=== PATIENT | male | born 1945 | race Caucasian/White ===

== ENCOUNTER → 2017-02-06 | Outpatient (CLI) | payer MEDICARE, BC ==
[2017-02-06 14:43] LABS: HIV 1/2 Antibodies Non-Reactive; HIV-1p24 Antigen Non-Reactive
== END ==
LOC: COL.LAB 09:36
PROVIDERS: Orthopaedic Surgery
DX: Z01.812 Encounter for preprocedural laboratory examination (principal); M17.12 Unilateral primary osteoarthritis, left knee

== ENCOUNTER → 2019-07-12 | Outpatient (CLI) | payer MEDICARE, BC | LOC: COL.VAS 10:20 | DX: I51.7 Cardiomegaly (principal) ==

== ENCOUNTER 2021-01-15 06:52 | Outpatient (CLI) | payer MEDICARE, BC ==
[2021-01-15] VITALS (17 sets, daily range): BP systolic 107–140; BP diastolic 56–97; PULSE 54–75; TEMP 97.3–98.7
[~2021-01-15] VITALS: Ht 177.8 cm; Wt 98.1 kg
[2021-01-15] MEDS ORDERED: CENTRUM1 TA1 PO (08:09)
[2021-01-15] MEDS ORDERED: HCTZ 25MG TAB25 MG PO (08:10)
[2021-01-15] MEDS ORDERED: DIOVAN 160MG160 MG PO (08:10)
[2021-01-15] MEDS ORDERED: NORVASC 5MG5 MG/TAB PO (08:11)
[2021-01-15] MEDS ORDERED: ASPIRIN E.C. 8181 MG PO (08:11)
[2021-01-15] MEDS ORDERED: VITAMINC500CH PO (08:11)
[2021-01-15] MEDS ORDERED: FOLIC ACID0.4 MG PO (08:11)
[2021-01-15] MEDS ORDERED: CRESTOR 10MG10 MG PO (08:12)
[2021-01-15] MEDS ORDERED: TOPROL XL100 MG PO (08:12)
--- NOTE | 2021-01-15 09:10 | NUR ---
Demario OR natanael who came to supervisor ovens pt for procedure was notified that pt had not been covid tested prior to bone marrow bx. He alerted Ibis RN. After discussion with NOLAN Baumann, and then NOLAN Jim with this nurse, it was decided that pt did not need to be have rapid swab completed prior to bone marrow bx per Hernán. Pt was taken to ambulatory dept by ivelisse.
[2021-01-15 10:10] LABS: MEAN CELL VOLUME 115 fl (80.0-100.0); MEAN CORPUSCULAR HGB CONC 32 g/dl (33.0-37.0); MEAN PLATELET VOLUME 12.7 fl (7.4-10.4); PLATELET COUNT 101 K/mm3 (130-400); RED BLOOD COUNT 1.83 M/mm3 (4.20-5.60); REDCELL DISTRIBUTION WIDTH-CV 18.7 % (11.5-14.5)
[2021-01-15 10:22] LABS: HEMOGLOBIN 6.8 g/dl (13.5-18.0); MEAN CORPUSCULAR HEMOGLOBIN 37 pg (27.0-31.0)
[2021-01-15 10:30] LABS: BAND 9 % (0-10); EOSINOPHIL 2 % (0-4); LYMPHOCYTE 29 % (20.0-51.0); NEUTROPHILS 57 % (42.0-75.2); NUCLEATED RED BLOOD CELL 1 (0-6); OVALOCYTES 2+; PLATELET ESTIMATE DECREASED (NORMAL); SCHISTOCYTES 1+; TEAR DROP CELLS 1+
--- NOTE | 2021-01-15 10:55 | NUR ---
Pt's Marcia contacted and updated about plan for pt to stay in [facility] for ordered blood transfusion. She expresses understanding. This nurse's phone number provided so she can call for updates. Pt continues to rest comfortably, call light in reach.
--- NOTE | 2021-01-15 18:38 | NUR ---
pt escorted to exit where picked him up. Pt tolerated blood transfusions well, he did not have any adverse reactions. Dressing to biopsy site remains clean dry and intact. Pt is ambulatory at time of departure, gait is steady. IV dc'd with cath intact, dressing applied.
[2021-08-23] MEDS ORDERED: FLOXIN OTIC DROP5 ML OS (09:40)
[2021-08-23] MEDS ORDERED: RESTORIL 1515 MG/CAP PO (09:41)
[2021-09-10] MEDS ORDERED: PREDNISONE1 MG PO (13:41)
== END 2021-01-15 18:40 | disposition home or self-care (01) ==
LOC: COL.RAD 06:52
PROVIDERS: Pathology Anatomic Pathology & Clinical Pathology
DX: D46.Z Other myelodysplastic syndromes (principal); D53.9 Nutritional anemia, unspecified
CPT/HCPCS: J2704; J7050; J7120; P9016

== ENCOUNTER 2021-03-02 12:49 | Outpatient (RCR) | payer MEDICARE, BC ==
[2021-03-02] VITALS (9 sets, daily range): BP systolic 103–133; BP diastolic 53–66; PULSE 57–66; TEMP 97–98.8
[~2021-03-02 12:49] MED LIST: ASPIRIN E.C. 8181 MG PO; CENTRUM1 TA1 PO; CRESTOR 10MG10 MG PO; DIOVAN 160MG160 MG PO; FOLIC ACID0.4 MG PO; HCTZ 25MG TAB25 MG PO; NORVASC 5MG5 MG/TAB PO; TOPROL XL100 MG PO; VITAMINC500CH PO
[2021-08-23] MEDS ORDERED: FLOXIN OTIC DROP5 ML OS (09:40)
[2021-08-23] MEDS ORDERED: RESTORIL 1515 MG/CAP PO (09:41)
[2021-09-10] MEDS ORDERED: PREDNISONE1 MG PO (13:41)
== END 2021-03-02 18:45 ==
LOC: EUO 12:49 → MEDICAL 12:52 → EUO 18:45
DX: D46.22 Refractory anemia with excess of blasts 2 (principal); D46.Z Other myelodysplastic syndromes; D53.9 Nutritional anemia, unspecified
CPT/HCPCS: OP; J7050; P9040

== ENCOUNTER 2021-03-15 13:00 | Outpatient (RCR) | payer MEDICARE, BC ==
[2021-03-15] VITALS (9 sets, daily range): BP systolic 100–131; BP diastolic 54–73; PULSE 64–70; TEMP 97.9–98.7
[~2021-03-15] VITALS: Ht 177.8 cm; Wt 90.9 kg
[2021-03-15] MEDS ORDERED: VENCLEXTA100 MG PO (13:42)
[2021-03-15] MEDS ORDERED: ZOVIRAX400 MG PO (13:44)
[2021-03-15] MEDS ORDERED: ZYLOPRIM 300MG300 MG PO (13:45)
[2021-08-23] MEDS ORDERED: FLOXIN OTIC DROP5 ML OS (09:40)
[2021-08-23] MEDS ORDERED: RESTORIL 1515 MG/CAP PO (09:41)
[2021-09-10] MEDS ORDERED: PREDNISONE1 MG PO (13:41)
== END 2021-03-15 19:48 | disposition home or self-care (01) ==
LOC: EUO 13:00
DX: D46.22 Refractory anemia with excess of blasts 2 (principal); D46.Z Other myelodysplastic syndromes; D64.9 Anemia, unspecified; Z95.9 Presence of cardiac and vascular implant and graft, unspecified
CPT/HCPCS: J1644; J7050; P9040

== ENCOUNTER 2021-03-26 13:00 | Outpatient (RCR) | payer MEDICARE, BC ==
[~2021-03-26] VITALS: Ht 177.8 cm; Wt 89.7 kg
[2021-03-26 13:00] VITALS: BP 114/60; PULSE 81; TEMP 100
[~2021-03-26 13:00] MED LIST changes: +VENCLEXTA100 MG PO; +ZOVIRAX400 MG PO; +ZYLOPRIM 300MG300 MG PO
[2021-03-26 14:30] VITALS: BP 106/62; PULSE 75; TEMP 98.9
[2021-03-26 14:45] VITALS: BP 98/61; PULSE 73; TEMP 98.6
[2021-03-26 15:00] VITALS: BP 98/57; PULSE 62; TEMP 98.6
[2021-03-26 15:30] VITALS: BP 95/56; PULSE 70; TEMP 98.6
[2021-03-26 16:25] VITALS: BP 99/55; PULSE 72; TEMP 98.8
[2021-08-23] MEDS ORDERED: FLOXIN OTIC DROP5 ML OS (09:40)
[2021-08-23] MEDS ORDERED: RESTORIL 1515 MG/CAP PO (09:41)
[2021-09-10] MEDS ORDERED: PREDNISONE1 MG PO (13:41)
== END 2021-03-26 16:45 | disposition home or self-care (01) ==
LOC: EUO 13:00
DX: D46.22 Refractory anemia with excess of blasts 2 (principal); D46.Z Other myelodysplastic syndromes
CPT/HCPCS: J7050; P9037

== ENCOUNTER 2021-03-31 09:09 | Outpatient (RCR) | payer MEDICARE, BC ==
[2021-03-31] VITALS (9 sets, daily range): BP systolic 97–130; BP diastolic 54–76; PULSE 73–90; TEMP 98–98.5
[~2021-03-31] VITALS: Ht 177.8 cm; Wt 89.9 kg
--- NOTE | 2021-03-31 09:28 | NUR ---
Pt arrives to medical unit rm 310, sitting up in chair, awake and alert, reports having a port-a-cath which needs accessed with a 0.75 inch needle. Call light and phone given to pt. No further needs reported. Call light in reach.
--- NOTE | 2021-03-31 10:35 | NUR ---
Blood transfusion started, VSS. Port BRIDGET accessed with 3/4 hubner needle, flush with 500 ml heparin with blood return. No complaints at this time. Denies pain and discomfort. No further needs expressed from the patient. Call light within reach
--- NOTE | 2021-03-31 10:35 | NUR ---
Assessment complete. Patient A&Ox4. VSS IV CDI. lungs ctba. HRR. Audible bowel sounds all quadrants. Nurse oriented patient to location, room and bed. No further needs expressed from the patient. Call light within reach
--- NOTE | 2021-03-31 10:50 | NUR ---
Nurse at the bedside for 15 minutes, patient tolerating the blood transfusion. A&Ox4. VSS. IV CDI. No further needs expressed from the patient. Call light withinr reach
--- NOTE | 2021-03-31 12:27 | NUR ---
Transfusion of 1st unit of blood complete. Patient tolerated well. VSS. IV CDI. No further needs expressed from the patient. Call light within reach
--- NOTE | 2021-03-31 13:38 | NUR ---
Second unit blood transfusion started. Patient A&Ox4. VSS. IV CDI. Call light within reach
--- NOTE | 2021-03-31 15:43 | NUR ---
Blood transfusion complete. Patient tolerated well. VSS. IV CDI. Port deaccessed with 500 ml heparin, bandaid applied. No further needs expressed from the patient.
--- NOTE | 2021-03-31 16:01 | NUR ---
Patient taken by wheelchair to ER entrance. No needs expressed from the patient.
[2021-08-23] MEDS ORDERED: FLOXIN OTIC DROP5 ML OS (09:40)
[2021-08-23] MEDS ORDERED: RESTORIL 1515 MG/CAP PO (09:41)
[2021-09-10] MEDS ORDERED: PREDNISONE1 MG PO (13:41)
== END 2021-03-31 16:08 | disposition home or self-care (01) ==
LOC: EUO 09:09 → MEDICAL 09:10 → EUO 10:00
DX: D46.22 Refractory anemia with excess of blasts 2 (principal); D46.Z Other myelodysplastic syndromes; D53.9 Nutritional anemia, unspecified
CPT/HCPCS: OP; J7050; P9040

== ENCOUNTER 2021-03-31 19:08 | Emergency (ER) | payer MEDICARE, BC ==
[~2021-03-31] VITALS: Ht 172.7 cm; Wt 89.1 kg
[2021-03-31 20:18] LABS: MUCOUS Present /lpf; PH 5 (5-8); SQUAMOUS EPITHELIAL None Seen /hpf; URINE APPEARANCE Clear; URINE BACTERIA None Seen /hpf; URINE BILIRUBIN Negative (NEGATIVE); URINE BLOOD Negative (NEGATIVE); URINE COLOR Yellow; URINE GLUCOSE Negative (NEGATIVE); URINE KETONE Negative (NEGATIVE); URINE LEUKOCYTE ESTERASE Negative (NEGATIVE); URINE NITRATE Negative (NEGATIVE); URINE PROTEIN(semi-quant) Negative (NEGATIVE); URINE RBC 0-2 /hpf; URINE WBC 0-2 /hpf
[2021-03-31 20:33] LABS: COLLECTION METHOD CLEAN CATCH
[2021-03-31 20:35] LABS: MEAN CELL VOLUME 90 fl (80.0-100.0); MEAN CORPUSCULAR HGB CONC 36 g/dl (33.0-37.0); RED BLOOD COUNT 2.61 M/mm3 (4.20-5.60); REDCELL DISTRIBUTION WIDTH-CV 17.9 % (11.5-14.5)
[2021-03-31 20:42] LABS: HEMATOCRIT 23.4 % (42.0-52.0); HEMOGLOBIN 8.3 g/dl (13.5-18.0); MEAN CORPUSCULAR HEMOGLOBIN 32 pg (27.0-31.0)
[2021-03-31 20:44] LABS: INR 1.2 (0.8-3.0); PROTHROMBIN TIME 13.7 SECONDS (9.7-12.8)
[2021-03-31 20:45] LABS: PLATELET COUNT 13 K/mm3 (130-400)
[2021-03-31 20:46] LABS: ALANINE AMINOTRANSFERASE 57 U/L (4-49); ALBUMIN 3.6 gm/dL (3.5-5.0); ALKALINE PHOSPHATASE 85 U/L (50-136); ANION GAP 7 mmol/L (7-16); AST,SGOT 34 U/L (15-37); BILIRUBIN,TOTAL 1.5 mg/dL (0.0-1.0); BLOOD UREA NITROGEN 32 mg/dL (9-20); CALCIUM 8.7 mg/dL (8.4-10.2); CARBON DIOXIDE 26 mmol/L (22-30); CHLORIDE 103 mmol/L (98-107); CREATINE KINASE 23 U/L (55-170); CREATININE, serum 1.07 (0.66-1.25); GLUCOSE 104 mg/dL (74-106); PARTIAL THROMBOPLASTIN TIME 29.1 SECONDS (26.0-37.0); POTASSIUM 3.5 mmol/L (3.4-5.0); SODIUM 136 mmol/L (137-145)
[2021-03-31 21:00] LABS: TROPONIN-I < 0.012 ng/mL (0.000-0.035)
[2021-03-31 21:27] LABS: BAND 2 % (0-10); EOSINOPHIL 1 % (0-4); LYMPHOCYTE 21 % (20.0-51.0); METAMYELOCYTE 1 % (0-0); NEUTROPHILS 61 % (42.0-75.2); PLATELET ESTIMATE DECREASED (NORMAL)
[2021-03-31 21:28] LABS: ANISOCYTOSIS 1+; HYPOCHROMIA 1+; OVALOCYTES 1+; POIKILOCYTOSIS 1+
[2021-03-31 22:40] VITALS: BP 138/80; PULSE 100; TEMP 98.7
[2021-08-23] MEDS ORDERED: FLOXIN OTIC DROP5 ML OS (09:40)
[2021-08-23] MEDS ORDERED: RESTORIL 1515 MG/CAP PO (09:41)
[2021-09-10] MEDS ORDERED: PREDNISONE1 MG PO (13:41)
== END 2021-03-31 22:40 | disposition home or self-care (01) ==
LOC: COL.ER 19:08
PROVIDERS: Emergency Medicine
DX: D46.20 Refractory anemia with excess of blasts, unspecified (principal); D69.6 Thrombocytopenia, unspecified; I10 Essential (primary) hypertension; R50.9 Fever, unspecified; Z20.822 Contact with and (suspected) exposure to COVID-19; Z79.899 Other long term (current) drug therapy
CPT/HCPCS: J0692; J7030

== ENCOUNTER 2021-04-02 13:00 | Outpatient (RCR) | payer MEDICARE, BC ==
[2021-04-01 17:52] VITALS: BP 105/57; PULSE 99; TEMP 98.7
[2021-04-01 18:23] VITALS: BP 114/61; PULSE 95; TEMP 99.4
[2021-04-01 18:38] VITALS: BP 109/66; PULSE 95; TEMP 98.6
[2021-04-01 19:30] VITALS: BP 118/64; PULSE 91; TEMP 98.8
--- NOTE | 2021-04-01 19:30 | NUR ---
pt tolerated platelet infusion with no problem. Port was deaccessed after flushing with 3 saline flushes. Per pharmacy, port was not flushed with heparin due to pt's low platelet count. per pharmacy, heparin is not used if platelets are <20. plan for pt to return for second pack of platelets tomorrow if we are able to get them from [facility].
[~2021-04-02] VITALS: Ht 172.7 cm; Wt 87.0 kg
[2021-04-02 14:15] VITALS: BP 116/72; PULSE 90; TEMP 98.7
[2021-04-02] MEDS ORDERED: LEVAQUIN 5500 MG/TA1 PO (14:30)
[2021-04-02 14:35] VITALS: BP 104/63; PULSE 85; TEMP 99.4
[2021-04-02 14:50] VITALS: BP 107/60; PULSE 77; TEMP 99
[2021-04-02 15:20] VITALS: BP 109/61; PULSE 79; TEMP 98.5
[2021-04-02 16:11] VITALS: BP 128/78; PULSE 83; TEMP 98.2
[2021-08-23] MEDS ORDERED: FLOXIN OTIC DROP5 ML OS (09:40)
[2021-08-23] MEDS ORDERED: RESTORIL 1515 MG/CAP PO (09:41)
[2021-09-10] MEDS ORDERED: PREDNISONE1 MG PO (13:41)
== END 2021-04-02 16:27 | disposition home or self-care (01) ==
LOC: EUO 13:00
DX: D46.22 Refractory anemia with excess of blasts 2 (principal); D46.Z Other myelodysplastic syndromes; D53.9 Nutritional anemia, unspecified
CPT/HCPCS: J1644; J7050; P9037

== ENCOUNTER 2021-04-11 14:46 | Outpatient (RCR) | payer MEDICARE, BC ==
[~2021-04-11] VITALS: Ht 172.7 cm; Wt 86.8 kg
[2021-04-11] VITALS (8 sets, daily range): BP systolic 104–130; BP diastolic 65–77; PULSE 72–86; TEMP 97.9–98.2
[~2021-04-11 14:46] MED LIST changes: +LEVAQUIN 5500 MG/TA1 PO
[2021-04-11] MEDS ORDERED: LEVAQUIN 5500 MG/TA1 PO (14:54)
[2021-08-23] MEDS ORDERED: FLOXIN OTIC DROP5 ML OS (09:40)
[2021-08-23] MEDS ORDERED: RESTORIL 1515 MG/CAP PO (09:41)
[2021-09-10] MEDS ORDERED: PREDNISONE1 MG PO (13:41)
== END 2021-04-11 18:27 | disposition home or self-care (01) ==
LOC: EUO 14:46
DX: D46.22 Refractory anemia with excess of blasts 2 (principal); D46.Z Other myelodysplastic syndromes; D53.9 Nutritional anemia, unspecified; D69.6 Thrombocytopenia, unspecified
CPT/HCPCS: J1644; J7050; P9037; P9040

== ENCOUNTER 2021-04-18 15:00 | Outpatient (RCR) | payer MEDICARE, BC ==
[2021-04-15 08:41] LABS: EOS % 0.3 % (0-4.0); GRAN # 4.6 (1.4-6.5); GRAN % 72.3 % (42.2-75.2); LYMPH # 0.8 (1.2-3.4); LYMPH % 12.8 % (20.0-51.0); MEAN CELL VOLUME 92 fl (80.0-100.0); MEAN CORPUSCULAR HGB CONC 33 g/dl (33.0-37.0); MONO # 0.9 (0.1-0.6); MONO % 13.4 % (1.7-9.3); RED BLOOD COUNT 2.34 M/mm3 (4.20-5.60); REDCELL DISTRIBUTION WIDTH-CV 16.7 % (11.5-14.5)
[2021-04-15 08:42] LABS: HEMATOCRIT 21.4 % (42.0-52.0); HEMOGLOBIN 7.1 g/dl (13.5-18.0); MEAN CORPUSCULAR HEMOGLOBIN 30 pg (27.0-31.0)
[2021-04-15 08:43] LABS: PLATELET COUNT 13 K/mm3 (130-400)
[2021-04-16 13:21] VITALS: BP 104/68; PULSE 81; TEMP 98
[2021-04-16 14:08] VITALS: BP 120/69; PULSE 78; TEMP 97.8
[2021-04-16 14:23] VITALS: BP 134/77; PULSE 72; TEMP 98
[2021-04-16 14:53] VITALS: BP 113/68; PULSE 69; TEMP 97.5
[2021-04-16 16:00] VITALS: BP 130/82; PULSE 81; TEMP 98.6
--- NOTE | 2021-04-16 17:00 | NUR ---
Pt tolerated transfusion with no problem. Pt amb to exit with walker. Pt aware that we will be in contact with him tomorrow about the ordered platelets. Pt was given express unit phone number to call with any questions.
[2021-04-16 17:05] LABS: MEAN CELL VOLUME 89 fl (80.0-100.0); MEAN CORPUSCULAR HGB CONC 35 g/dl (33.0-37.0); RED BLOOD COUNT 2.58 M/mm3 (4.20-5.60); REDCELL DISTRIBUTION WIDTH-CV 16.4 % (11.5-14.5)
[2021-04-16 17:09] LABS: ALBUMIN 3.4 gm/dL (3.5-5.0); BILIRUBIN,TOTAL 1.2 mg/dL (0.0-1.0); CALCIUM 8.8 mg/dL (8.4-10.2); CREATININE, serum 1.03 (0.66-1.25); MAGNESIUM 1.8 mg/dL (1.6-2.3); POTASSIUM 3.7 mmol/L (3.4-5.0); TOTAL PROTEIN 7.2 gm/dL (6.4-8.2)
[2021-04-16 17:28] LABS: HEMATOCRIT 22.9 % (42.0-52.0); HEMOGLOBIN 7.9 g/dl (13.5-18.0); MEAN CORPUSCULAR HEMOGLOBIN 31 pg (27.0-31.0)
[2021-04-16 17:31] LABS: MEAN PLATELET VOLUME 9.7 fl (7.4-10.4); PLATELET COUNT 14 K/mm3 (130-400)
[2021-04-16 18:42] LABS: BAND 1 % (0-10); LYMPHOCYTE 16 % (20.0-51.0); NEUTROPHILS 72 % (42.0-75.2)
[2021-04-16 18:43] LABS: BURR CELLS 1+; PLATELET ESTIMATE DECREASED (NORMAL)
[~2021-04-18] VITALS: Ht 172.7 cm; Wt 86.4 kg
[2021-04-18 16:18] VITALS: BP 134/65; PULSE 80; TEMP 97.8
[2021-04-18] MEDS ORDERED: VENCLEXTA100 MG PO (16:38)
[2021-04-18 16:44] VITALS: BP 106/62; PULSE 78; TEMP 98.4
[2021-04-18 16:59] VITALS: BP 121/71; PULSE 74; TEMP 98.7
[2021-04-18 17:30] VITALS: BP 110/71; PULSE 76; TEMP 98.8
--- NOTE | 2021-04-18 18:06 | NUR ---
pt again did well during his platelet transfusion. no signs or sx of transfusion reaction. pt is amb to exit with walker with steady gait. port was deaccessed and flushed with 20 cc saline and 5 ml hep flush per protocol
[2021-08-23] MEDS ORDERED: FLOXIN OTIC DROP5 ML OS (09:40)
[2021-08-23] MEDS ORDERED: RESTORIL 1515 MG/CAP PO (09:41)
[2021-09-10] MEDS ORDERED: PREDNISONE1 MG PO (13:41)
== END 2021-04-18 18:07 | disposition home or self-care (01) ==
LOC: EUO 15:00
PROVIDERS: Internal Medicine; Internal Medicine Medical Oncology
DX: C95.90 Leukemia, unspecified not having achieved remission (principal); D53.9 Nutritional anemia, unspecified; D46.Z Other myelodysplastic syndromes
CPT/HCPCS: J1644; J7050; P9035; P9040

== ENCOUNTER 2021-04-23 13:00 | Outpatient (RCR) | payer MEDICARE, BC ==
[2021-04-23] VITALS (10 sets, daily range): BP systolic 104–1443; BP diastolic 51–78; PULSE 47–70; TEMP 97.4–98
[~2021-04-23] VITALS: Ht 172.7 cm; Wt 89.0 kg
[2021-08-23] MEDS ORDERED: FLOXIN OTIC DROP5 ML OS (09:40)
[2021-08-23] MEDS ORDERED: RESTORIL 1515 MG/CAP PO (09:41)
[2021-09-10] MEDS ORDERED: PREDNISONE1 MG PO (13:41)
== END 2021-04-25 12:46 | disposition home or self-care (01) ==
LOC: EUO 13:00
DX: D64.2 Secondary sideroblastic anemia due to drugs and toxins (principal)
CPT/HCPCS: J1644; J7050; P9040

== ENCOUNTER 2021-04-26 13:00 | Outpatient (RCR) | payer MEDICARE, BC ==
[2021-04-26 13:51] VITALS: BP 100/62; PULSE 73; TEMP 98.8
[2021-04-26 14:11] VITALS: BP 106/66; PULSE 70; TEMP 98.3
[2021-04-26 14:26] VITALS: BP 110/63; PULSE 64; TEMP 98.2
[2021-04-26 14:56] VITALS: BP 103/60; PULSE 63; TEMP 98.4
[2021-04-26 15:29] VITALS: BP 120/69; PULSE 64; TEMP 98.4
[2021-08-23] MEDS ORDERED: FLOXIN OTIC DROP5 ML OS (09:40)
[2021-08-23] MEDS ORDERED: RESTORIL 1515 MG/CAP PO (09:41)
[2021-09-10] MEDS ORDERED: PREDNISONE1 MG PO (13:41)
== END 2021-04-26 16:15 | disposition home or self-care (01) ==
LOC: EUO 13:00
DX: D69.6 Thrombocytopenia, unspecified (principal)
CPT/HCPCS: J1644; J7050; P9035

== ENCOUNTER 2021-04-30 13:30 | Outpatient (RCR) | payer MEDICARE, BC ==
[~2021-04-30] VITALS: Ht 172.7 cm; Wt 80.9 kg
[2021-04-30 13:25] VITALS: BP 101/61; PULSE 67; TEMP 98
[2021-04-30] MEDS ORDERED: MELATONIN5 M1 SL (14:10)
[2021-04-30 14:15] VITALS: BP 107/64; PULSE 72; TEMP 97.8
[2021-04-30 14:30] VITALS: BP 90/60; PULSE 61; TEMP 98.2
[2021-04-30 15:00] VITALS: BP 107/69; PULSE 67; TEMP 98
[2021-04-30 15:50] VITALS: BP 117/70; PULSE 64; TEMP 98.5
--- NOTE | 2021-04-30 16:04 | NUR ---
Port DC'd, bleeding controlled at site. Site dressed with folded 2x2 and tegaderm. Pt ambulates out from dept under own power with wheeled walker, accompanied by .
[2021-08-23] MEDS ORDERED: FLOXIN OTIC DROP5 ML OS (09:40)
[2021-08-23] MEDS ORDERED: RESTORIL 1515 MG/CAP PO (09:41)
[2021-09-10] MEDS ORDERED: PREDNISONE1 MG PO (13:41)
== END 2021-04-30 16:05 | disposition home or self-care (01) ==
LOC: EUO 13:30
DX: D46.22 Refractory anemia with excess of blasts 2 (principal); D46.Z Other myelodysplastic syndromes; D69.6 Thrombocytopenia, unspecified
CPT/HCPCS: J1644; J7050; P9035

== ENCOUNTER 2021-05-03 13:00 | Outpatient (RCR) | payer MEDICARE, BC ==
[~2021-05-03 13:00] MED LIST changes: +MELATONIN5 M1 SL
--- NOTE | 2021-05-03 13:15 | NUR ---
Patient here from platelets/blood tranfusion. Consent signed. Patient anxious about current situation, prefers tranfusion to be in infusion center. Allowed patient to verbalize concerns, became more comfortable with transfusion. Lungs CTA, heart tones strong and even, pulses palpable. Abdomen soft, non tender, non distended. Bowel sounds active x4 quads. No c/o at this time.
[2021-05-03 14:10] VITALS: BP 126/70; PULSE 73; TEMP 98.4
[2021-05-03 15:50] VITALS: BP 128/67; PULSE 66; TEMP 98.7
[2021-05-03 16:31] VITALS: BP 121/62; PULSE 71; TEMP 97.9
[2021-05-03 17:21] VITALS: BP 128/69; PULSE 63; TEMP 98.1
[2021-05-03 17:55] VITALS: BP 134/68; PULSE 70; TEMP 98
[2021-05-03 18:39] VITALS: BP 133/68; PULSE 63; TEMP 98.1
--- NOTE | 2021-05-03 19:30 | NUR ---
Blood transfusion completed, patient adament about discharging. PAC flushed with 5ml Heparin and deaccessed. Ambulated patient to ER entrance at 1930.
[2021-08-23] MEDS ORDERED: FLOXIN OTIC DROP5 ML OS (09:40)
[2021-08-23] MEDS ORDERED: RESTORIL 1515 MG/CAP PO (09:41)
[2021-09-10] MEDS ORDERED: PREDNISONE1 MG PO (13:41)
== END 2021-05-04 09:28 | disposition home or self-care (01) ==
LOC: EUO 13:00 → EDSTATUS 13:00 → EUO 05-04 09:28
DX: D46.22 Refractory anemia with excess of blasts 2 (principal); D46.Z Other myelodysplastic syndromes; D69.6 Thrombocytopenia, unspecified
CPT/HCPCS: J7050; P9035; P9040

== ENCOUNTER 2021-05-08 14:00 | Outpatient (RCR) | payer MEDICARE, BC ==
[2021-05-08 14:20] VITALS: BP 106/64; PULSE 79; TEMP 97.7
[2021-05-08 15:18] VITALS: BP 98/64; PULSE 79; TEMP 97.3
[2021-05-08 15:33] VITALS: BP 106/56; PULSE 78; TEMP 97.8
[2021-05-08 16:03] VITALS: BP 116/57; PULSE 79; TEMP 98.6
[2021-05-08 16:30] VITALS: BP 116/67; PULSE 82; TEMP 98.6
--- NOTE | 2021-05-08 16:45 | NUR ---
Port-a-cath DC'd, site covered with 2x2 gauze and tegaderm. Pt ambulates out with wheeled walker, steady gait.
[2021-08-23] MEDS ORDERED: FLOXIN OTIC DROP5 ML OS (09:40)
[2021-08-23] MEDS ORDERED: RESTORIL 1515 MG/CAP PO (09:41)
[2021-09-10] MEDS ORDERED: PREDNISONE1 MG PO (13:41)
== END 2021-05-08 17:58 | disposition home or self-care (01) ==
LOC: EDSTATUS 14:00 → EUO 14:00
DX: D46.22 Refractory anemia with excess of blasts 2 (principal); D46.Z Other myelodysplastic syndromes; D69.6 Thrombocytopenia, unspecified
CPT/HCPCS: J7050; P9037

== ENCOUNTER 2021-05-11 12:50 | Outpatient (RCR) | payer MEDICARE, BC ==
[~2021-05-11] VITALS: Ht 172.7 cm; Wt 85.0 kg
[2021-05-11 13:50] VITALS: BP 111/57; PULSE 73; TEMP 97.8
[2021-05-11 13:55] VITALS: BP 125/57; PULSE 75; TEMP 97.7
[2021-05-11] MEDS ORDERED: VENCLEXTA100 MG PO (13:59)
--- NOTE | 2021-05-11 14:04 | NUR ---
Pt resting in room at this time, educated on s/sx of a transfusion reaction. Pt denies any problems or symptoms. at bedside, denies needs, call adriana hatfield. 3/4" hernandez needle used to access PAC to R chest, good blood return and flushing well. Will continue to monitor, remained with pt for first 15 minutes.
[2021-05-11 14:05] VITALS: BP 109/59; PULSE 71; TEMP 97.6
[2021-05-11 14:35] VITALS: BP 109/59; PULSE 75; TEMP 97.6
--- NOTE | 2021-05-11 16:05 | NUR ---
Pt received 1 U PRBCs, tolerated well, no s/sx of a transfusion reaction. Pt heparinized and decaccessed, pressure applied and gauze and tape. Pt escorted out with all belongings with daughter, criteria met.
[2021-05-11 16:35] VITALS: BP 106/59; PULSE 71; TEMP 97.6
[2021-08-23] MEDS ORDERED: FLOXIN OTIC DROP5 ML OS (09:40)
[2021-08-23] MEDS ORDERED: RESTORIL 1515 MG/CAP PO (09:41)
[2021-09-10] MEDS ORDERED: PREDNISONE1 MG PO (13:41)
== END 2021-05-11 16:05 | disposition home or self-care (01) ==
LOC: EUO 12:50 → MEDICAL 12:50 → EUO 13:00 → EDSTATUS 13:00 → EUO 16:05
DX: D46.22 Refractory anemia with excess of blasts 2 (principal); D46.Z Other myelodysplastic syndromes
CPT/HCPCS: J7050; P9040

== ENCOUNTER 2021-05-14 14:00 | Outpatient (RCR) | payer MEDICARE, BC ==
[~2021-05-14] VITALS: Ht 172.7 cm; Wt 81.2 kg
[2021-05-14 13:56] VITALS: BP 104/61; PULSE 79; TEMP 97.7
[2021-05-14 14:27] VITALS: BP 104/61; PULSE 80; TEMP 97.8
[2021-05-14 14:54] VITALS: BP 110/65; PULSE 77; TEMP 97.9
[2021-05-14 15:09] VITALS: BP 111/66; PULSE 74; TEMP 98.1
[2021-05-14 15:39] VITALS: BP 114/70; PULSE 71; TEMP 97.7
[2021-05-14 16:30] VITALS: BP 116/75; PULSE 77; TEMP 97.5
[2021-08-23] MEDS ORDERED: FLOXIN OTIC DROP5 ML OS (09:40)
[2021-08-23] MEDS ORDERED: RESTORIL 1515 MG/CAP PO (09:41)
[2021-09-10] MEDS ORDERED: PREDNISONE1 MG PO (13:41)
== END 2021-05-14 16:51 | disposition home or self-care (01) ==
LOC: EUO 14:00
DX: D46.22 Refractory anemia with excess of blasts 2 (principal); D46.Z Other myelodysplastic syndromes; D53.9 Nutritional anemia, unspecified
CPT/HCPCS: J1644; J7050; P9035

== ENCOUNTER 2021-05-17 13:00 | Outpatient (RCR) | payer MEDICARE, BC ==
[2021-05-17] VITALS (13 sets, daily range): BP systolic 112–147; BP diastolic 68–79; PULSE 70–95; TEMP 97.7–98.2
--- NOTE | 2021-05-18 00:59 | NUR ---
TOOK OVER PT CARE 05/17 AT 1999. BEDSIDE REPOT GIVEN. PT HERE FOR BLOOD PRODUCT REPLACEMENTS SECONDARY TO LEUKEMIA. 2 UNITS OF PRBCS WERE TRANSFUSED AND THE LINE FLUSHED WITH NS. PORT A CATH WAS ALSO FLUSHED AND HEPARIN LOCKED AFTER TRANSFUSIONS WERE COMPLETED. PORT SITE REMAINED FREE FROM COMPLICATIONS. PT REPORTED MINIMAL PAIN WHEN PRESSURE HELP TO STOP BLEEDING AFTER DEACCESSING PORT. VITAL SIGNS REMAINED STABLE AND NO SIDE EFFECTS NOTED. PT ALSO EDUCATED ON POSSIBLE TRANFUSION REACTION AND TO CALL 911 AND/OR THE HOSPITAL FOR ANY COMPLICATIONS AFTER LEAVING. WALKED WITH KENZIE TO ED EXIT. PT ALERT AND ORIENTED, PLANNED TO DRIVE HIMSELF HOME. NO CONCERNS REPORTED PRIOR TO DISCHARGE.
[2021-08-23] MEDS ORDERED: FLOXIN OTIC DROP5 ML OS (09:40)
[2021-08-23] MEDS ORDERED: RESTORIL 1515 MG/CAP PO (09:41)
[2021-09-10] MEDS ORDERED: PREDNISONE1 MG PO (13:41)
== END 2021-05-17 23:30 | disposition home or self-care (01) ==
LOC: EDSTATUS 13:00 → EUO 13:00
DX: D46.22 Refractory anemia with excess of blasts 2 (principal); D46.Z Other myelodysplastic syndromes
CPT/HCPCS: J1644; J1940; J7050; P9037; P9040

== ENCOUNTER → 2021-05-18 | Emergency (ER) | payer MEDICARE, BC ==
[~2021-05-18] MED LIST changes: +DIFLUCAN200 MG PO; +FLOXIN OTIC DROP5 ML OS; +LEVAQUIN 750MG750 M1 PO; +MIRALAX PA17 GM/Dose PO; +PREDNISONE1 MG PO; +RESTORIL 1515 MG/CAP PO; +SENEXON-S 50-81 EACH PO; +ZOFRAN ODT8 MG PO
== END ==
LOC: COL.ER 07:24
DX: R69 Illness, unspecified (principal)

== ENCOUNTER 2021-05-22 13:00 | Outpatient (RCR) | payer MEDICARE, BC ==
[~2021-05-22] VITALS: Ht 172.7 cm; Wt 84.6 kg
[2021-05-22] VITALS (8 sets, daily range): BP systolic 91–137; BP diastolic 57–75; PULSE 70–85; TEMP 97.4–97.8
[~2021-05-22 13:00] MED LIST changes: -DIFLUCAN200 MG PO; -FLOXIN OTIC DROP5 ML OS; -LEVAQUIN 750MG750 M1 PO; -MIRALAX PA17 GM/Dose PO; -PREDNISONE1 MG PO; -RESTORIL 1515 MG/CAP PO; -SENEXON-S 50-81 EACH PO; -ZOFRAN ODT8 MG PO
[2021-08-23] MEDS ORDERED: FLOXIN OTIC DROP5 ML OS (09:40)
[2021-08-23] MEDS ORDERED: RESTORIL 1515 MG/CAP PO (09:41)
[2021-09-10] MEDS ORDERED: PREDNISONE1 MG PO (13:41)
== END 2021-05-22 18:05 | disposition home or self-care (01) ==
LOC: EUO 13:00
DX: D46.22 Refractory anemia with excess of blasts 2 (principal); D53.9 Nutritional anemia, unspecified; D69.6 Thrombocytopenia, unspecified; D46.Z Other myelodysplastic syndromes
CPT/HCPCS: J1644; J7050; P9037

== ENCOUNTER 2021-05-31 13:00 | Outpatient (RCR) | payer MEDICARE, BC ==
[2021-05-31] VITALS (13 sets, daily range): BP systolic 106–159; BP diastolic 63–85; PULSE 71–84; TEMP 97.3–98.2
[~2021-05-31] VITALS: Ht 172.7 cm; Wt 86.6 kg
[2021-08-23] MEDS ORDERED: FLOXIN OTIC DROP5 ML OS (09:40)
[2021-08-23] MEDS ORDERED: RESTORIL 1515 MG/CAP PO (09:41)
[2021-09-10] MEDS ORDERED: PREDNISONE1 MG PO (13:41)
== END 2021-05-31 19:00 | disposition home or self-care (01) ==
LOC: EUO 13:00
DX: D46.22 Refractory anemia with excess of blasts 2 (principal)
CPT/HCPCS: J1644; J7050; P9035; P9040

== ENCOUNTER 2021-06-04 13:00 | Outpatient (RCR) | payer MEDICARE, BC ==
[~2021-06-04] VITALS: Ht 172.7 cm; Wt 87.7 kg
[2021-06-04 13:29] VITALS: BP 103/54; PULSE 79; TEMP 97.9
[2021-06-04 13:55] VITALS: BP 98/54; PULSE 77; TEMP 98.4
[2021-06-04 14:10] VITALS: BP 97/53; PULSE 73; TEMP 97.9
[2021-06-04 14:40] VITALS: BP 97/55; PULSE 74; TEMP 97.7
[2021-06-04 15:26] VITALS: BP 131/78; PULSE 82; TEMP 98.1
[2021-08-23] MEDS ORDERED: FLOXIN OTIC DROP5 ML OS (09:40)
[2021-08-23] MEDS ORDERED: RESTORIL 1515 MG/CAP PO (09:41)
[2021-09-10] MEDS ORDERED: PREDNISONE1 MG PO (13:41)
== END 2021-06-04 15:45 | disposition home or self-care (01) ==
LOC: EUO 13:00 → EDSTATUS 13:00 → EUO 15:45
DX: D69.6 Thrombocytopenia, unspecified (principal); D46.22 Refractory anemia with excess of blasts 2
CPT/HCPCS: J1644; J7050; P9035

== ENCOUNTER 2021-06-07 13:30 | Outpatient (RCR) | payer MEDICARE, BC ==
[2021-06-07] VITALS (11 sets, daily range): BP systolic 106–125; BP diastolic 62–72; PULSE 72–86; TEMP 36.9
[~2021-06-07] VITALS: Ht 172.7 cm; Wt 85.9 kg
[2021-08-23] MEDS ORDERED: FLOXIN OTIC DROP5 ML OS (09:40)
[2021-08-23] MEDS ORDERED: RESTORIL 1515 MG/CAP PO (09:41)
[2021-09-10] MEDS ORDERED: PREDNISONE1 MG PO (13:41)
== END 2021-06-07 20:28 | disposition home or self-care (01) ==
LOC: EUO 13:30
DX: D46.22 Refractory anemia with excess of blasts 2 (principal); D69.6 Thrombocytopenia, unspecified; D46.Z Other myelodysplastic syndromes; Z95.9 Presence of cardiac and vascular implant and graft, unspecified
CPT/HCPCS: J1644; J7050; P9035; P9040

== ENCOUNTER 2021-06-12 13:00 | Outpatient (RCR) | payer MEDICARE, BC ==
[2021-06-11] VITALS (13 sets, daily range): BP systolic 100–155; BP diastolic 55–78; PULSE 75–89; TEMP 98.2–98.8
--- NOTE | 2021-06-11 20:09 | NUR ---
PT has tolerated transfusion of prbc and platelets well with no adverse or allergic reactions. Port flushed with 20 cc ns and heparin flush and left in place for platelet transfusion tomorrow. i walked pt to his car, pt is amb with steady gait.
[2021-06-12 13:57] VITALS: BP 121/63; PULSE 82; TEMP 98
[2021-06-12 14:00] VITALS: BP 118/68; PULSE 84; TEMP 97.9
[2021-06-12 14:20] VITALS: BP 115/65; PULSE 78; TEMP 97.7
[2021-06-12 14:32] VITALS: BP 94/70; PULSE 90; TEMP 97.6
[2021-06-12 14:35] VITALS: BP 119/69; PULSE 77; TEMP 98.4
[2021-06-12 15:20] VITALS: BP 117/69; PULSE 79; TEMP 98.4
[2021-08-23] MEDS ORDERED: FLOXIN OTIC DROP5 ML OS (09:40)
[2021-08-23] MEDS ORDERED: RESTORIL 1515 MG/CAP PO (09:41)
[2021-09-10] MEDS ORDERED: PREDNISONE1 MG PO (13:41)
== END 2021-06-12 15:26 | disposition home or self-care (01) ==
LOC: EUO 13:00
DX: D46.22 Refractory anemia with excess of blasts 2 (principal); D69.6 Thrombocytopenia, unspecified; D46.Z Other myelodysplastic syndromes; Z95.9 Presence of cardiac and vascular implant and graft, unspecified
CPT/HCPCS: J1644; J7050; P9035; P9040

== ENCOUNTER 2021-06-14 13:00 | Outpatient (RCR) | payer MEDICARE, BC ==
[2021-06-14] VITALS (8 sets, daily range): BP systolic 114–136; BP diastolic 67–86; PULSE 84–91; TEMP 97.4–98.3
[2021-08-23] MEDS ORDERED: FLOXIN OTIC DROP5 ML OS (09:40)
[2021-08-23] MEDS ORDERED: RESTORIL 1515 MG/CAP PO (09:41)
[2021-09-10] MEDS ORDERED: PREDNISONE1 MG PO (13:41)
== END 2021-06-14 17:54 | disposition home or self-care (01) ==
LOC: EDSTATUS 13:00 → EUO 13:00
DX: D69.6 Thrombocytopenia, unspecified (principal)
CPT/HCPCS: J7050; P9035

== ENCOUNTER 2021-06-14 20:46 | Emergency (ER) | payer MEDICARE, BC ==
[~2021-06-14] VITALS: Ht 177.8 cm; Wt 86.8 kg
[2021-06-14 21:29] VITALS: BP 119/76; PULSE 98; TEMP 97.9
[2021-08-23] MEDS ORDERED: FLOXIN OTIC DROP5 ML OS (09:40)
[2021-08-23] MEDS ORDERED: RESTORIL 1515 MG/CAP PO (09:41)
[2021-09-10] MEDS ORDERED: PREDNISONE1 MG PO (13:41)
== END 2021-06-14 22:58 | disposition home or self-care (01) ==
LOC: COL.ER 20:46
DX: Z48.01 Encounter for change or removal of surgical wound dressing (principal); I10 Essential (primary) hypertension; Z79.899 Other long term (current) drug therapy

== ENCOUNTER 2021-06-17 06:46 | Outpatient (CLI) | payer MEDICARE, BC ==
[~2021-06-17] VITALS: Ht 172.7 cm; Wt 85.7 kg
[2021-06-17 07:20] VITALS: BP 106/62; PULSE 81; TEMP 98
[2021-06-17 07:46] LABS: MEAN CELL VOLUME 85 fl (80.0-100.0); MEAN CORPUSCULAR HGB CONC 33 g/dl (33.0-37.0); MEAN PLATELET VOLUME 9.3 fl (7.4-10.4); RED BLOOD COUNT 2.67 M/mm3 (4.20-5.60); REDCELL DISTRIBUTION WIDTH-CV 13.5 % (11.5-14.5)
[2021-06-17 08:08] LABS: HEMATOCRIT 22.8 % (42.0-52.0); HEMOGLOBIN 7.6 g/dl (13.5-18.0); MEAN CORPUSCULAR HEMOGLOBIN 28 pg (27.0-31.0)
[2021-06-17 08:09] LABS: PLATELET COUNT 6 K/mm3 (130-400)
--- NOTE | 2021-06-17 08:35 | NUR ---
Gail, [employer] HEL[employer] who is assisting with the bone marrow biopsy procedure with Dr. Ricketts will report Plt count to Dr. Ricketts.
[2021-06-17 09:30] VITALS: BP 114/60; PULSE 71; TEMP 97.8
--- NOTE | 2021-06-17 09:30 | NUR ---
Patient arrives to [facility] via cart, accompanied by LABORATORY CHEMIST Gail. Per report, Dr. Ricketts does not have any additional orders from critical lab results. Patient will see Dr. Riggins's office today at scheduled appointment. PIV to TKO. Monitoring is applied - VSS and WNL on room air. Patient is lying flat in the bed, per order for 10 minutes of flat time. He denies pain or nausea. He is alert and oriented. Discharge plan is discussed.
[2021-06-17 09:45] VITALS: BP 114/57; PULSE 76
--- NOTE | 2021-06-17 09:45 | NUR ---
Patient is offered and receives juice and a muffin to eat. VSS on room air. Denies pain, nausea, or other needs. He is able to sit up in bed without complication.
[2021-06-17 10:00] VITALS: BP 110/59; PULSE 71
--- NOTE | 2021-06-17 10:00 | NUR ---
Patient is tolerating PO well. VSS on room air. His operative site is clean/dry, bandaid intact.
[2021-06-17 10:02] LABS: BAND 2 % (0-10); LYMPHOCYTE 28 % (20.0-51.0); METAMYELOCYTE 1 % (0-0); MYELOCYTE 1 % (0-0); NEUTROPHILS 52 % (42.0-75.2); PLATELET ESTIMATE DECREASED (NORMAL)
--- NOTE | 2021-06-17 10:24 | NUR ---
Patient has met discharge criteria. Discharge instructions are discussed. He denies any questions and verbalizes understanding. PIV is removed with catheter intact and hemostasis achieved. He changes to his clothing independently. He is escorted to the exit via wheelchair by staff. He is discharged to home to the care of his and daughter, who drive him home in a private vehicle at 1024.
[2021-08-23] MEDS ORDERED: FLOXIN OTIC DROP5 ML OS (09:40)
[2021-08-23] MEDS ORDERED: RESTORIL 1515 MG/CAP PO (09:41)
[2021-09-10] MEDS ORDERED: PREDNISONE1 MG PO (13:41)
== END 2021-06-17 10:24 | disposition home or self-care (01) ==
LOC: SDCO 06:46
PROVIDERS: Pathology Anatomic Pathology & Clinical Pathology
DX: D64.9 Anemia, unspecified (principal)
CPT/HCPCS: J7120

== ENCOUNTER 2021-06-18 13:00 | Outpatient (RCR) | payer MEDICARE, BC ==
[2021-06-18] VITALS (10 sets, daily range): BP systolic 105–132; BP diastolic 59–91; PULSE 78–86; TEMP 97.9–98.6
[~2021-06-18] VITALS: Ht 172.7 cm; Wt 88.4 kg
--- NOTE | 2021-06-18 18:15 | NUR ---
PLT transfusion completed without complication. PAC DC'd, 2x2 and bandaid applied over site. Pt remains in room for 10 mins to ensure no bleeding at site. He is escorted out to ED exit with steady gait.
[2021-08-23] MEDS ORDERED: FLOXIN OTIC DROP5 ML OS (09:40)
[2021-08-23] MEDS ORDERED: RESTORIL 1515 MG/CAP PO (09:41)
[2021-09-10] MEDS ORDERED: PREDNISONE1 MG PO (13:41)
== END 2021-06-18 18:15 | disposition home or self-care (01) ==
LOC: EUO 13:00
DX: D46.22 Refractory anemia with excess of blasts 2 (principal); D46.Z Other myelodysplastic syndromes; D69.6 Thrombocytopenia, unspecified
CPT/HCPCS: J1644; J7050; P9035

== ENCOUNTER 2021-06-21 14:00 | Outpatient (RCR) | payer MEDICARE, BC ==
[2021-06-21] VITALS (18 sets, daily range): BP systolic 107–153; BP diastolic 56–77; PULSE 73–89; TEMP 97.2–99.2
--- NOTE | 2021-06-21 20:19 | NUR ---
Pt up to b/r x2, gait steady, report to Marcie FRANCISCO
[2021-08-23] MEDS ORDERED: FLOXIN OTIC DROP5 ML OS (09:40)
[2021-08-23] MEDS ORDERED: RESTORIL 1515 MG/CAP PO (09:41)
[2021-09-10] MEDS ORDERED: PREDNISONE1 MG PO (13:41)
== END 2021-06-24 14:37 | disposition home or self-care (01) ==
LOC: EUO 14:00
DX: D46.22 Refractory anemia with excess of blasts 2 (principal); D46.Z Other myelodysplastic syndromes; D69.6 Thrombocytopenia, unspecified
CPT/HCPCS: J1644; J7040; P9035; P9040

== ENCOUNTER 2021-06-25 13:00 | Outpatient (RCR) | payer MEDICARE, BC ==
[2021-06-25] VITALS (9 sets, daily range): BP systolic 115–142; BP diastolic 66–83; PULSE 69–77; TEMP 98.1–98.4
--- NOTE | 2021-06-25 16:30 | NUR ---
transfuion completed, port flushed per protocol, 2x2 and bandaid over site after needle removal, no oozing noted
[2021-08-23] MEDS ORDERED: FLOXIN OTIC DROP5 ML OS (09:40)
[2021-08-23] MEDS ORDERED: RESTORIL 1515 MG/CAP PO (09:41)
[2021-09-10] MEDS ORDERED: PREDNISONE1 MG PO (13:41)
== END 2021-06-28 16:00 | disposition home or self-care (01) ==
LOC: EUO 13:00
DX: D69.6 Thrombocytopenia, unspecified (principal)
CPT/HCPCS: J1644; J7050; P9035

== ENCOUNTER 2021-06-28 13:00 | Outpatient (RCR) | payer MEDICARE, BC ==
[2021-06-28 13:41] VITALS: BP 108/66; PULSE 74; TEMP 97.7
[2021-06-28 14:00] VITALS: BP 104/63; PULSE 87; TEMP 98
[2021-06-28 14:15] VITALS: BP 118/70; PULSE 77; TEMP 97.7
[2021-06-28 14:45] VITALS: BP 118/64; PULSE 76; TEMP 98.2
[2021-08-23] MEDS ORDERED: FLOXIN OTIC DROP5 ML OS (09:40)
[2021-08-23] MEDS ORDERED: RESTORIL 1515 MG/CAP PO (09:41)
[2021-09-10] MEDS ORDERED: PREDNISONE1 MG PO (13:41)
== END 2021-07-03 12:14 | disposition home or self-care (01) ==
LOC: EDSTATUS 13:00 → EUO 13:00
DX: D69.6 Thrombocytopenia, unspecified (principal); D46.22 Refractory anemia with excess of blasts 2; D46.Z Other myelodysplastic syndromes; Z95.9 Presence of cardiac and vascular implant and graft, unspecified
CPT/HCPCS: J1644; J7050; P9035

== ENCOUNTER 2021-07-02 13:00 | Outpatient (RCR) | payer MEDICARE, BC ==
[2021-07-01] VITALS (8 sets, daily range): BP systolic 107–133; BP diastolic 67–78; PULSE 79–84; TEMP 98.1–98.6
[~2021-07-02] VITALS: Ht 172.7 cm; Wt 86.9 kg
[2021-07-02 13:32] VITALS: BP 126/70; PULSE 95; TEMP 98.2
[2021-07-02 13:50] VITALS: BP 128/77; PULSE 88; TEMP 98.3
[2021-07-02 14:05] VITALS: BP 117/70; PULSE 83; TEMP 97.7
[2021-07-02 14:35] VITALS: BP 127/73; PULSE 80; TEMP 98.1
[2021-07-02 15:33] VITALS: BP 138/82; PULSE 76; TEMP 98.2
[2021-07-02 15:55] VITALS: BP 142/81; PULSE 85; TEMP 98
--- NOTE | 2021-07-02 16:10 | NUR ---
infusion completed, port flushed with 20cc with 2x2 and bandaids applied per request. pt discharged amb.
[2021-08-23] MEDS ORDERED: FLOXIN OTIC DROP5 ML OS (09:40)
[2021-08-23] MEDS ORDERED: RESTORIL 1515 MG/CAP PO (09:41)
[2021-09-10] MEDS ORDERED: PREDNISONE1 MG PO (13:41)
== END 2021-07-04 12:30 | disposition home or self-care (01) ==
LOC: EUO 13:00 → EDSTATUS 13:00 → EUO 07-04 12:30
DX: D53.9 Nutritional anemia, unspecified (principal)
CPT/HCPCS: J7050; P9035; P9040

== ENCOUNTER 2021-07-05 13:00 | Outpatient (RCR) | payer MEDICARE, BC ==
[2021-07-05] VITALS (8 sets, daily range): BP systolic 101–133; BP diastolic 65–78; PULSE 72–84; TEMP 97.8–98
[~2021-07-05] VITALS: Ht 172.7 cm; Wt 86.5 kg
--- NOTE | 2021-07-05 16:36 | NUR ---
pt tolerated platelet transfusions with no problem, port flushed with 20cc ns and port deaccessed. pt is amb to exit independently with steady gait.
[2021-08-23] MEDS ORDERED: FLOXIN OTIC DROP5 ML OS (09:40)
[2021-08-23] MEDS ORDERED: RESTORIL 1515 MG/CAP PO (09:41)
[2021-09-10] MEDS ORDERED: PREDNISONE1 MG PO (13:41)
== END 2021-07-05 16:37 | disposition home or self-care (01) ==
LOC: EUO 13:00
DX: D69.6 Thrombocytopenia, unspecified (principal); D46.Z Other myelodysplastic syndromes; D46.22 Refractory anemia with excess of blasts 2
CPT/HCPCS: J7050; P9035

== ENCOUNTER 2021-07-09 13:00 | Outpatient (RCR) | payer MEDICARE, BC ==
[2021-07-08 14:05] VITALS: BP 115/66; PULSE 75; TEMP 97.7
[2021-07-08 14:37] VITALS: BP 124/64; PULSE 71; TEMP 98.1
[2021-07-08 14:52] VITALS: BP 112/69; PULSE 74; TEMP 98
[2021-07-08 15:22] VITALS: BP 121/70; PULSE 79; TEMP 98.1
[2021-07-08 15:48] VITALS: BP 122/75; PULSE 78; TEMP 98.1
--- NOTE | 2021-07-08 15:56 | NUR ---
Pt has tolerated transfusion of 1 pack platelets with no problem. Nobles needle left in place for transfusion of platelets and PRBC tomorrow. port flushed with 20 cc normal saline. Pt is ambulatory to exit.
[2021-07-09] VITALS (17 sets, daily range): BP systolic 110–149; BP diastolic 59–88; PULSE 72–97; TEMP 97.5–98.3
[2021-08-23] MEDS ORDERED: FLOXIN OTIC DROP5 ML OS (09:40)
[2021-08-23] MEDS ORDERED: RESTORIL 1515 MG/CAP PO (09:41)
[2021-09-10] MEDS ORDERED: PREDNISONE1 MG PO (13:41)
== END 2021-07-09 18:44 | disposition home or self-care (01) ==
LOC: EUO 13:00 → EDSTATUS 13:00 → EUO 18:44
DX: D46.22 Refractory anemia with excess of blasts 2 (principal); D69.6 Thrombocytopenia, unspecified
CPT/HCPCS: J7050; P9035; P9040

== ENCOUNTER 2021-07-23 13:00 | Outpatient (RCR) | payer MEDICARE, BC ==
[2021-07-22 09:39] LABS: MEAN CELL VOLUME 90 fl (80.0-100.0); MEAN CORPUSCULAR HGB CONC 33 g/dl (33.0-37.0); MEAN PLATELET VOLUME 10.3 fl (7.4-10.4); RED BLOOD COUNT 2.78 M/mm3 (4.20-5.60); REDCELL DISTRIBUTION WIDTH-CV 14.1 % (11.5-14.5)
[2021-07-22 09:43] LABS: HEMATOCRIT 25.1 % (42.0-52.0); HEMOGLOBIN 8.3 g/dl (13.5-18.0); MEAN CORPUSCULAR HEMOGLOBIN 30 pg (27.0-31.0)
[2021-07-22 09:44] LABS: PLATELET COUNT 4 K/mm3 (130-400)
[2021-07-22 13:00] LABS: EOSINOPHIL 1 % (0-4); LYMPHOCYTE 48 % (20.0-51.0)
[2021-07-22 13:01] LABS: BAND 5 % (0-10); PLATELET ESTIMATE DECREASED (NORMAL)
[2021-07-22 13:02] LABS: NEUTROPHILS 34 % (42.0-75.2)
[2021-07-23 15:35] VITALS: BP 129/77; PULSE 73; TEMP 98.5
[2021-07-23 15:51] VITALS: BP 137/74; PULSE 62; TEMP 98.4
[2021-07-23 16:14] VITALS: BP 137/75; PULSE 68; TEMP 98
[2021-07-23 16:44] VITALS: BP 122/74; PULSE 69; TEMP 97.8
[2021-07-23 17:15] VITALS: BP 119/74; PULSE 87; TEMP 97.8
--- NOTE | 2021-07-23 17:30 | NUR ---
Pt tolerated platelet transfusion with no problem. port flushed with 20 cc normal saline, then was de-accessed prior to pt's departure. I walked with pt to exit, he had steady gait with a walker.
[2021-08-23] MEDS ORDERED: FLOXIN OTIC DROP5 ML OS (09:40)
[2021-08-23] MEDS ORDERED: RESTORIL 1515 MG/CAP PO (09:41)
[2021-09-10] MEDS ORDERED: PREDNISONE1 MG PO (13:41)
== END 2021-07-23 17:35 | disposition home or self-care (01) ==
LOC: EUO 13:00
PROVIDERS: Internal Medicine Medical Oncology
DX: D46.22 Refractory anemia with excess of blasts 2 (principal); D46.Z Other myelodysplastic syndromes; D69.6 Thrombocytopenia, unspecified; D53.9 Nutritional anemia, unspecified
CPT/HCPCS: J7050; P9035

== ENCOUNTER 2021-07-25 13:00 | Outpatient (RCR) | payer MEDICARE, BC ==
[2021-07-24] VITALS (7 sets, daily range): BP systolic 121–143; BP diastolic 64–78; PULSE 70–84; TEMP 98–98.5
--- NOTE | 2021-07-24 17:30 | NUR ---
Pt has tolerated platelet and prbc transfusion with no problem. Port was flushed briskly with 20 cc ns, port access left in place for transfusion tomorrow. I walked with pt to exit, he is ambulatory with steady gait with walker.
[~2021-07-25] VITALS: Ht 172.7 cm; Wt 88.0 kg
[2021-07-25 12:57] VITALS: BP 120/68; PULSE 85; TEMP 97.6
[2021-07-25 13:23] VITALS: BP 120/66; PULSE 85; TEMP 97.6
[2021-07-25] MEDS ORDERED: DIFLUCAN200 MG PO (13:29)
[2021-07-25] MEDS ORDERED: LEVAQUIN 750MG750 M1 PO (13:29)
[2021-07-25] MEDS ORDERED: MIRALAX PA17 GM/Dose PO (13:30)
[2021-07-25] MEDS ORDERED: SENEXON-S 50-81 EACH PO (13:30)
[2021-07-25] MEDS ORDERED: ZOFRAN ODT8 MG PO (13:32)
[2021-07-25 13:38] VITALS: BP 121/65; PULSE 86; TEMP 98.5
[2021-07-25 14:08] VITALS: BP 120/64; PULSE 89; TEMP 98
[2021-07-25 15:08] VITALS: BP 124/73; PULSE 88; TEMP 98.4
--- NOTE | 2021-07-25 15:40 | NUR ---
Pt tolerated platlet tranfusion without issue. Port flushed with 20 ml on NS and deaccessed. Pt site holding pressure over site for 10 mins prior to departing. He exits dept with steady gait using his wheeled walker.
[2021-08-23] MEDS ORDERED: FLOXIN OTIC DROP5 ML OS (09:40)
[2021-08-23] MEDS ORDERED: RESTORIL 1515 MG/CAP PO (09:41)
[2021-09-10] MEDS ORDERED: PREDNISONE1 MG PO (13:41)
== END 2021-07-25 15:51 | disposition home or self-care (01) ==
LOC: EUO 13:00
DX: D46.22 Refractory anemia with excess of blasts 2 (principal); D69.6 Thrombocytopenia, unspecified; D46.Z Other myelodysplastic syndromes
CPT/HCPCS: J7050; P9016; P9035

== ENCOUNTER 2021-07-26 10:03 | Outpatient (RCR) | payer MEDICARE, BC ==
[2021-07-26] VITALS (15 sets, daily range): BP systolic 96–162; BP diastolic 62–83; PULSE 67–106; TEMP 97.4–98.5
[~2021-07-26 10:03] MED LIST changes: +DIFLUCAN200 MG PO; +LEVAQUIN 750MG750 M1 PO; +MIRALAX PA17 GM/Dose PO; +SENEXON-S 50-81 EACH PO; +ZOFRAN ODT8 MG PO
--- NOTE | 2021-07-26 18:01 | NUR ---
Report to Chente Freeman.
[2021-07-27 16:15] VITALS: BP 127/73; PULSE 68; TEMP 98.8
[2021-07-27 16:30] VITALS: BP 127/76; PULSE 71; TEMP 98.6
[2021-07-27 16:45] VITALS: BP 125/75; PULSE 77; TEMP 98.3
[2021-07-27 17:12] VITALS: BP 141/81; PULSE 74; TEMP 98
[2021-07-27 17:58] VITALS: BP 141/94; PULSE 72; TEMP 98.3
--- NOTE | 2021-07-27 18:12 | NUR ---
PATIENT TOLERATED TRANSFUSION WITH NO S/S REACTION. HE REQUESTS TO HAVE HIS PORT DEACCESSED AFTER TRANSFUSION COMPLETED. PORT ACCESS REMOVED WITH NO ISSUE. PATIENT'S DAUGHTER ESCORTS HIM HOME.
[2021-08-23] MEDS ORDERED: FLOXIN OTIC DROP5 ML OS (09:40)
[2021-08-23] MEDS ORDERED: RESTORIL 1515 MG/CAP PO (09:41)
[2021-09-10] MEDS ORDERED: PREDNISONE1 MG PO (13:41)
== END 2021-07-29 07:41 | disposition home or self-care (01) ==
LOC: EUO 10:03
DX: D46.22 Refractory anemia with excess of blasts 2 (principal); D46.Z Other myelodysplastic syndromes; D69.6 Thrombocytopenia, unspecified
CPT/HCPCS: J1940; J7050; P9016; P9035

== ENCOUNTER 2021-07-29 10:56 | Outpatient (RCR) | payer MEDICARE, BC ==
[2021-07-29] VITALS (8 sets, daily range): BP systolic 117–145; BP diastolic 68–82; PULSE 73–83; TEMP 97.8–98.9
[2021-08-23] MEDS ORDERED: FLOXIN OTIC DROP5 ML OS (09:40)
[2021-08-23] MEDS ORDERED: RESTORIL 1515 MG/CAP PO (09:41)
[2021-09-10] MEDS ORDERED: PREDNISONE1 MG PO (13:41)
== END 2021-07-29 15:32 | disposition home or self-care (01) ==
LOC: EUO 10:56
DX: D69.6 Thrombocytopenia, unspecified (principal)
CPT/HCPCS: J1644; J7050; P9035

== ENCOUNTER 2021-08-01 13:00 | Outpatient (RCR) | payer MEDICARE, BC ==
[~2021-08-01] VITALS: Ht 172.7 cm; Wt 84.6 kg
[2021-08-01] VITALS (7 sets, daily range): BP systolic 112–137; BP diastolic 69–76; PULSE 72–78; TEMP 97.8–98.4
--- NOTE | 2021-08-01 16:07 | NUR ---
pt tolerated platelet transfusions with no problems. We left port accessed as pt anticipates possible transfusion tomorrow. Sammy states will have port deaccessed by express RN tomorrow either way. I walked with Sammy to exit. he has steady gait today without any aide.
[2021-08-23] MEDS ORDERED: FLOXIN OTIC DROP5 ML OS (09:40)
[2021-08-23] MEDS ORDERED: RESTORIL 1515 MG/CAP PO (09:41)
[2021-09-10] MEDS ORDERED: PREDNISONE1 MG PO (13:41)
== END 2021-08-01 17:02 | disposition home or self-care (01) ==
LOC: EUO 13:00
DX: D69.6 Thrombocytopenia, unspecified (principal); D53.9 Nutritional anemia, unspecified
CPT/HCPCS: J7050; P9035

== ENCOUNTER 2021-08-02 09:21 | Outpatient (RCR) | payer MEDICARE, BC ==
[~2021-08-02] VITALS: Ht 172.7 cm; Wt 83.5 kg
[2021-08-02] VITALS (8 sets, daily range): BP systolic 105–127; BP diastolic 65–83; PULSE 69–75; TEMP 97.7–98.6
[2021-08-23] MEDS ORDERED: FLOXIN OTIC DROP5 ML OS (09:40)
[2021-08-23] MEDS ORDERED: RESTORIL 1515 MG/CAP PO (09:41)
[2021-09-10] MEDS ORDERED: PREDNISONE1 MG PO (13:41)
== END 2021-08-02 15:00 | disposition home or self-care (01) ==
LOC: EUO 09:21 → EDSTATUS 09:30 → EUO 15:00
DX: D46.22 Refractory anemia with excess of blasts 2 (principal); D46.Z Other myelodysplastic syndromes; D69.6 Thrombocytopenia, unspecified
CPT/HCPCS: J1644; J7050; P9016; P9035

== ENCOUNTER 2021-08-06 13:00 | Outpatient (RCR) | payer MEDICARE, BC ==
[2021-08-05 10:11] VITALS: BP 142/78; PULSE 73; TEMP 97.5
[2021-08-05 11:43] VITALS: BP 124/79; PULSE 78; TEMP 97.6
[2021-08-05 11:58] VITALS: BP 121/70; PULSE 80; TEMP 98.1
[2021-08-05 12:28] VITALS: BP 123/67; PULSE 76; TEMP 98
[2021-08-05 13:28] VITALS: BP 120/69; PULSE 83; TEMP 97.6
[~2021-08-06] VITALS: Ht 172.7 cm; Wt 76.6 kg
[2021-08-06 13:29] VITALS: BP 104/62; PULSE 88; TEMP 98
[2021-08-06 13:52] VITALS: BP 101/60; PULSE 80; TEMP 98.5
[2021-08-06 14:07] VITALS: BP 111/50; PULSE 78; TEMP 98.7
[2021-08-06 14:37] VITALS: BP 112/57; PULSE 76; TEMP 98.5
[2021-08-06 15:20] VITALS: BP 123/58; PULSE 79; TEMP 98.2
[2021-08-23] MEDS ORDERED: FLOXIN OTIC DROP5 ML OS (09:40)
[2021-08-23] MEDS ORDERED: RESTORIL 1515 MG/CAP PO (09:41)
[2021-09-10] MEDS ORDERED: PREDNISONE1 MG PO (13:41)
== END 2021-08-06 16:00 | disposition home or self-care (01) ==
LOC: EUO 13:00
DX: D69.6 Thrombocytopenia, unspecified (principal)
CPT/HCPCS: J1644; J7050; P9035

== ENCOUNTER 2021-08-11 05:45 | Emergency (ER) | payer MEDICARE, BC ==
[2021-08-11] VITALS (11 sets, daily range): BP systolic 116–137; BP diastolic 64–72; PULSE 71–89; TEMP 97.8–99.1
[~2021-08-11] VITALS: Ht 22.9 cm; Wt 85.5 kg
[2021-08-11 07:22] LABS: MEAN CELL VOLUME 86 fl (80.0-100.0); MEAN CORPUSCULAR HGB CONC 35 g/dl (33.0-37.0); MEAN PLATELET VOLUME 9.3 fl (7.4-10.4); RED BLOOD COUNT 2.35 M/mm3 (4.20-5.60); REDCELL DISTRIBUTION WIDTH-CV 13.5 % (11.5-14.5)
[2021-08-11 07:24] LABS: INR 1.3 (0.8-3.0); PROTHROMBIN TIME 14.9 SECONDS (9.7-12.8)
[2021-08-11 07:26] LABS: PARTIAL THROMBOPLASTIN TIME 35.6 SECONDS (26.0-37.0)
[2021-08-11 07:28] LABS: HEMATOCRIT 20.2 % (42.0-52.0); MEAN CORPUSCULAR HEMOGLOBIN 30 pg (27.0-31.0)
[2021-08-11 07:30] LABS: PLATELET COUNT 8 K/mm3 (130-400)
[2021-08-11 08:38] LABS: BAND 1 % (0-10); LYMPHOCYTE 30 % (20.0-51.0); NEUTROPHILS 44 % (42.0-75.2); PLATELET ESTIMATE DECREASED (NORMAL)
[2021-08-23] MEDS ORDERED: FLOXIN OTIC DROP5 ML OS (09:40)
[2021-08-23] MEDS ORDERED: RESTORIL 1515 MG/CAP PO (09:41)
[2021-09-10] MEDS ORDERED: PREDNISONE1 MG PO (13:41)
== END 2021-08-11 12:42 | disposition home or self-care (01) ==
LOC: COL.ER 05:45
PROVIDERS: Emergency Medicine
DX: D69.6 Thrombocytopenia, unspecified (principal); D46.9 Myelodysplastic syndrome, unspecified; Z48.00 Encounter for change or removal of nonsurgical wound dressing; Z79.899 Other long term (current) drug therapy
CPT/HCPCS: P9016; P9035

== ENCOUNTER 2021-08-22 14:39 | Emergency (ER) | payer MEDICARE, BC ==
[~2021-08-22] VITALS: Ht 177.8 cm; Wt 83.6 kg
[2021-08-22 14:49] VITALS: TEMP 97.1
[2021-08-22 16:59] VITALS: BP 133/73; PULSE 70
[2021-08-23] MEDS ORDERED: FLOXIN OTIC DROP5 ML OS (09:40)
[2021-08-23] MEDS ORDERED: RESTORIL 1515 MG/CAP PO (09:41)
[2021-09-10] MEDS ORDERED: PREDNISONE1 MG PO (13:41)
== END 2021-08-22 16:59 | disposition home or self-care (01) ==
LOC: COL.ER 14:39
DX: S05.02XA Injury of conjunctiva and corneal abrasion without foreign body, left eye, initial encounter (principal); Z88.0 Allergy status to penicillin; X58.XXXA Exposure to other specified factors, initial encounter

== ENCOUNTER 2021-09-21 13:00 | Outpatient (RCR) | payer MEDICARE, BC ==
[2021-08-07 12:06] VITALS: BP 129/64; PULSE 85; TEMP 98
[2021-08-07 12:24] VITALS: BP 100/60; PULSE 85; TEMP 98.1
[2021-08-07 12:39] VITALS: BP 115/62; PULSE 80; TEMP 98.1
[2021-08-07 13:09] VITALS: BP 111/57; PULSE 76; TEMP 98.2
[2021-08-07 13:30] VITALS: BP 116/62; PULSE 74; TEMP 98.3
--- NOTE | 2021-08-07 13:30 | NUR ---
Sammy tolerated PRBC infusion today with no problems. Port was flushed with ns 20 cc and heparin flush and was left accessed per orders for transfusion of platelets tomorrow. Pt is amb to exit today with walker with steady gait.
[2021-08-08] VITALS (9 sets, daily range): BP systolic 106–128; BP diastolic 63–71; PULSE 88–97; TEMP 98.1–99.1
[2021-08-09 08:06] LABS: MEAN CELL VOLUME 84 fl (80.0-100.0); MEAN CORPUSCULAR HGB CONC 35 g/dl (33.0-37.0); MEAN PLATELET VOLUME 8.9 fl (7.4-10.4); RED BLOOD COUNT 2.34 M/mm3 (4.20-5.60); REDCELL DISTRIBUTION WIDTH-CV 13.4 % (11.5-14.5)
[2021-08-09 08:11] LABS: HEMATOCRIT 19.7 % (42.0-52.0); HEMOGLOBIN 6.8 g/dl (13.5-18.0); MEAN CORPUSCULAR HEMOGLOBIN 29 pg (27.0-31.0); PLATELET COUNT 21 K/mm3 (130-400)
[2021-08-09 08:33] VITALS: BP 114/66; PULSE 87; TEMP 98.3
[2021-08-09 09:53] LABS: LYMPHOCYTE 67 % (20.0-51.0); NEUTROPHILS 18 % (42.0-75.2)
[2021-08-09 09:54] LABS: PLATELET ESTIMATE DECREASED (NORMAL)
[2021-08-09 12:29] VITALS: BP 114/67; PULSE 87; TEMP 98.6
[2021-08-09 12:51] VITALS: BP 110/66; PULSE 82; TEMP 98.3
[2021-08-09 13:08] VITALS: BP 112/68; PULSE 82; TEMP 98
[2021-08-09 13:40] VITALS: BP 114/67; PULSE 84; TEMP 98
[2021-08-09 14:00] VITALS: BP 109/64; PULSE 83; TEMP 98
--- NOTE | 2021-08-09 14:16 | NUR ---
infusion completed, port flushed per protocol and taken out per pt request.
[2021-08-12 08:26] LABS: MEAN CELL VOLUME 85 fl (80.0-100.0); MEAN CORPUSCULAR HGB CONC 35 g/dl (33.0-37.0); MEAN PLATELET VOLUME 11.2 fl (7.4-10.4); RED BLOOD COUNT 2.52 M/mm3 (4.20-5.60); REDCELL DISTRIBUTION WIDTH-CV 13.4 % (11.5-14.5)
[2021-08-12 08:33] LABS: HEMATOCRIT 21.4 % (42.0-52.0); HEMOGLOBIN 7.5 g/dl (13.5-18.0); MEAN CORPUSCULAR HEMOGLOBIN 30 pg (27.0-31.0)
[2021-08-12 08:35] LABS: PLATELET COUNT 9 K/mm3 (130-400)
[2021-08-12 08:40] LABS: PATHOLOGY DIFF REVIEW OK
[2021-08-12 08:52] VITALS: BP 102/60; PULSE 75; TEMP 98
[2021-08-12 09:23] LABS: BAND 9 % (0-10); LYMPHOCYTE 30 % (20.0-51.0); NEUTROPHILS 43 % (42.0-75.2)
[2021-08-12 09:24] LABS: PLATELET ESTIMATE DECREASED (NORMAL)
[2021-08-13] VITALS (10 sets, daily range): BP systolic 102–110; BP diastolic 57–68; PULSE 62–80; TEMP 98–98.9
--- NOTE | 2021-08-13 15:50 | NUR ---
Transfusion tubing changed prior to starting PRBC infusion.
[2021-08-14 08:31] VITALS: BP 113/68; PULSE 76; TEMP 98.7
[2021-08-14 08:37] LABS: MEAN CELL VOLUME 86 fl (80.0-100.0); MEAN CORPUSCULAR HGB CONC 34 g/dl (33.0-37.0); MEAN PLATELET VOLUME 11.7 fl (7.4-10.4); RED BLOOD COUNT 2.66 M/mm3 (4.20-5.60); REDCELL DISTRIBUTION WIDTH-CV 13.8 % (11.5-14.5)
[2021-08-14 08:43] LABS: HEMATOCRIT 22.9 % (42.0-52.0); HEMOGLOBIN 7.8 g/dl (13.5-18.0); MEAN CORPUSCULAR HEMOGLOBIN 29 pg (27.0-31.0)
[2021-08-14 08:44] LABS: PLATELET COUNT 10 K/mm3 (130-400)
[2021-08-14 09:04] LABS: ALBUMIN 2.8 gm/dL (3.4-4.8); BILIRUBIN,TOTAL 0.7 mg/dL (0.2-1.2); CALCIUM 9.1 mg/dL (8.4-10.2); CREATININE, serum 0.92 mg/dL (0.72-1.25); MAGNESIUM 1.8 mg/dL (1.6-2.6); POTASSIUM 3.7 mmol/L (3.5-4.5)
[2021-08-14 09:14] LABS: BAND 4 % (0-10); LYMPHOCYTE 41 % (20.0-51.0); NEUTROPHILS 42 % (42.0-75.2)
[2021-08-14 09:18] LABS: PLATELET ESTIMATE DECREASED (NORMAL)
[2021-08-15] VITALS (10 sets, daily range): BP systolic 104–130; BP diastolic 58–74; PULSE 67–77; TEMP 97.5–98.8
--- NOTE | 2021-08-15 18:00 | NUR ---
pt tolerated his transfusions again with no problem. I walked with pt to exit, he was steady with his walker. Daughter Ligia came to pick him up. Port was left accessed for blood draw tomorrow.
[2021-08-16 08:42] LABS: MEAN CELL VOLUME 87 fl (80.0-100.0); MEAN CORPUSCULAR HGB CONC 34 g/dl (33.0-37.0); MEAN PLATELET VOLUME 10.1 fl (7.4-10.4); RED BLOOD COUNT 2.97 M/mm3 (4.20-5.60); REDCELL DISTRIBUTION WIDTH-CV 13.4 % (11.5-14.5)
[2021-08-16 08:59] LABS: HEMOGLOBIN 8.9 g/dl (13.5-18.0); MEAN CORPUSCULAR HEMOGLOBIN 30 pg (27.0-31.0)
[2021-08-16 09:00] LABS: HEMATOCRIT 25.9 % (42.0-52.0); PLATELET COUNT 10 K/mm3 (130-400)
[2021-08-16 09:12] VITALS: BP 113/68; PULSE 75; TEMP 99
[2021-08-16 09:53] LABS: BAND 4 % (0-10); LYMPHOCYTE 46 % (20.0-51.0); MYELOCYTE 2 % (0-0); NEUTROPHILS 45 % (42.0-75.2)
[2021-08-16 09:55] LABS: PLATELET ESTIMATE DECREASED (NORMAL)
[2021-08-16 10:40] VITALS: BP 114/62; PULSE 66; TEMP 98.5
[2021-08-16 11:05] VITALS: BP 106/66; PULSE 69; TEMP 98
[2021-08-16 11:20] VITALS: BP 117/68; PULSE 65; TEMP 98.3
[2021-08-16 11:50] VITALS: BP 127/60; PULSE 64; TEMP 97.9
[2021-08-16 12:31] VITALS: BP 126/68; PULSE 72; TEMP 98.4
[2021-08-17 05:47] LABS: PATHOLOGY DIFF REVIEW OK +
[2021-08-19 09:02] LABS: MEAN CELL VOLUME 89 fl (80.0-100.0); MEAN CORPUSCULAR HGB CONC 33 g/dl (33.0-37.0); MEAN PLATELET VOLUME 11.4 fl (7.4-10.4); REDCELL DISTRIBUTION WIDTH-CV 13.3 % (11.5-14.5)
[2021-08-19 09:19] LABS: MEAN CORPUSCULAR HEMOGLOBIN 30 pg (27.0-31.0)
[2021-08-19 09:21] LABS: PLATELET COUNT 7 K/mm3 (130-400)
[2021-08-19 10:22] LABS: BAND 1 % (0-10); LYMPHOCYTE 38 % (20.0-51.0); METAMYELOCYTE 2 % (0-0); NEUTROPHILS 48 % (42.0-75.2)
[2021-08-19 10:26] LABS: PLATELET ESTIMATE DECREASED (NORMAL)
[2021-08-19 11:44] VITALS: BP 112/59; PULSE 63; TEMP 98.3
[2021-08-19 12:01] VITALS: BP 123/59; PULSE 64; TEMP 98.5
[2021-08-19 12:22] VITALS: BP 109/55; PULSE 61; TEMP 98.1
[2021-08-19 12:37] VITALS: BP 109/57; PULSE 61; TEMP 98.2
[2021-08-19 13:07] VITALS: BP 119/60; PULSE 59; TEMP 98.2
[2021-08-19 13:45] VITALS: BP 127/60; PULSE 59; TEMP 98.2
[2021-08-21] VITALS (9 sets, daily range): BP systolic 102–129; BP diastolic 55–68; PULSE 63–78; TEMP 98–98.2
[2021-08-21 08:37] LABS: MEAN CELL VOLUME 88 fl (80.0-100.0); MEAN CORPUSCULAR HGB CONC 34 g/dl (33.0-37.0); MEAN PLATELET VOLUME 8.7 fl (7.4-10.4); RED BLOOD COUNT 2.63 M/mm3 (4.20-5.60); REDCELL DISTRIBUTION WIDTH-CV 13.4 % (11.5-14.5)
[2021-08-21 08:52] LABS: HEMATOCRIT 23.2 % (42.0-52.0); HEMOGLOBIN 7.9 g/dl (13.5-18.0); MEAN CORPUSCULAR HEMOGLOBIN 30 pg (27.0-31.0)
[2021-08-21 08:53] LABS: PLATELET COUNT 7 K/mm3 (130-400)
[2021-08-21 09:04] LABS: ALBUMIN 2.9 gm/dL (3.4-4.8); BILIRUBIN,TOTAL 0.6 mg/dL (0.2-1.2); CALCIUM 9.3 mg/dL (8.4-10.2); CREATININE, serum 0.99 mg/dL (0.72-1.25); MAGNESIUM 1.8 mg/dL (1.6-2.6); POTASSIUM 3.9 mmol/L (3.5-4.5); TOTAL PROTEIN 6.3 gm/dL (6.2-8.1)
[2021-08-21 09:32] LABS: BAND 3 % (0-10); LYMPHOCYTE 17 % (20.0-51.0); METAMYELOCYTE 1 % (0-0); NEUTROPHILS 44 % (42.0-75.2); PLATELET ESTIMATE DECREASED (NORMAL)
[2021-08-23 08:47] LABS: MEAN CELL VOLUME 87 fl (80.0-100.0); MEAN CORPUSCULAR HGB CONC 34 g/dl (33.0-37.0); MEAN PLATELET VOLUME 9.8 fl (7.4-10.4); RED BLOOD COUNT 3.04 M/mm3 (4.20-5.60); REDCELL DISTRIBUTION WIDTH-CV 13.5 % (11.5-14.5)
[2021-08-23 08:49] LABS: HEMATOCRIT 26.4 % (42.0-52.0); MEAN CORPUSCULAR HEMOGLOBIN 30 pg (27.0-31.0)
[2021-08-23 08:54] LABS: PLATELET COUNT 12 K/mm3 (130-400)
[2021-08-23 09:09] VITALS: BP 110/66; PULSE 81; TEMP 98.5
[2021-08-23 09:50] LABS: BAND 3 % (0-10); LYMPHOCYTE 16 % (20.0-51.0)
[2021-08-23 09:51] LABS: PLATELET ESTIMATE DECREASED (NORMAL)
[2021-08-23 09:54] LABS: NEUTROPHILS 63 % (42.0-75.2)
[2021-08-23 13:17] VITALS: BP 117/65; PULSE 70; TEMP 97.8
[2021-08-23 13:45] VITALS: BP 117/65; PULSE 69; TEMP 98.5
[2021-08-23 14:00] VITALS: BP 137/73; PULSE 72; TEMP 98.1
[2021-08-23 14:20] VITALS: BP 129/87; PULSE 67; TEMP 98.1
[2021-08-26 08:55] VITALS: BP 105/67; PULSE 74; TEMP 97.7
[2021-08-26 11:37] LABS: BAND 1 % (0-10); LYMPHOCYTE 41 % (20.0-51.0); NEUTROPHILS 46 % (42.0-75.2)
[2021-08-26 11:38] LABS: PLATELET ESTIMATE DECREASED (NORMAL)
[2021-08-26 11:39] LABS: MEAN CELL VOLUME 87 fl (80.0-100.0); MEAN CORPUSCULAR HGB CONC 34 g/dl (33.0-37.0); MEAN PLATELET VOLUME 10.6 fl (7.4-10.4); RED BLOOD COUNT 2.84 M/mm3 (4.20-5.60); REDCELL DISTRIBUTION WIDTH-CV 13.2 % (11.5-14.5)
[2021-08-26 11:40] LABS: HEMATOCRIT 24.8 % (42.0-52.0); HEMOGLOBIN 8.4 g/dl (13.5-18.0); MEAN CORPUSCULAR HEMOGLOBIN 30 pg (27.0-31.0); PLATELET COUNT 6 K/mm3 (130-400)
--- NOTE | 2021-08-26 12:00 | NUR ---
after lab gotten today, VAP was left in for pt, pt arrived back on unit via walker to check on lab results, pt waited in chair, pt recieved phone call from Dr moreau and he stated that he would recieve his platlets Thu am after being ordered to come in pm. Dr moreau was called and left message to confirm new orders and to fax new ones
[2021-08-27 14:35] VITALS: BP 120/69; PULSE 74; TEMP 98.6
[2021-08-27 15:10] VITALS: BP 127/73; PULSE 67; TEMP 98.9
[2021-08-27 15:25] VITALS: BP 123/66; PULSE 66; TEMP 98.7
[2021-08-27 15:38] LABS: CREATININE, serum 0.85 mg/dL (0.72-1.25)
[2021-08-27 15:55] VITALS: BP 132/70; PULSE 68; TEMP 98.6
[2021-08-28] VITALS (7 sets, daily range): BP systolic 98–126; BP diastolic 58–67; PULSE 71–80; TEMP 98.1–98.8
[2021-08-28 08:47] LABS: MEAN CELL VOLUME 88 fl (80.0-100.0); MEAN CORPUSCULAR HGB CONC 34 g/dl (33.0-37.0); MEAN PLATELET VOLUME 9.2 fl (7.4-10.4); RED BLOOD COUNT 2.57 M/mm3 (4.20-5.60); REDCELL DISTRIBUTION WIDTH-CV 13.2 % (11.5-14.5)
[2021-08-28 08:48] LABS: HEMATOCRIT 22.5 % (42.0-52.0); HEMOGLOBIN 7.6 g/dl (13.5-18.0); MEAN CORPUSCULAR HEMOGLOBIN 30 pg (27.0-31.0)
[2021-08-28 08:49] LABS: PLATELET COUNT 13 K/mm3 (130-400)
[2021-08-28 09:21] LABS: ALBUMIN 2.9 gm/dL (3.4-4.8); BILIRUBIN,TOTAL 0.6 mg/dL (0.2-1.2); CALCIUM 9.5 mg/dL (8.4-10.2); CREATININE, serum 1.01 mg/dL (0.72-1.25); MAGNESIUM 1.8 mg/dL (1.6-2.6); POTASSIUM 3.6 mmol/L (3.5-4.5); TOTAL PROTEIN 6.3 gm/dL (6.2-8.1)
[2021-08-28 09:30] LABS: BAND 2 % (0-10); LYMPHOCYTE 36 % (20.0-51.0); METAMYELOCYTE 1 % (0-0); NEUTROPHILS 52 % (42.0-75.2)
[2021-08-28 09:31] LABS: PLATELET ESTIMATE DECREASED (NORMAL)
[2021-08-30 08:35] LABS: MEAN CELL VOLUME 89 fl (80.0-100.0); MEAN CORPUSCULAR HGB CONC 34 g/dl (33.0-37.0); MEAN PLATELET VOLUME 8.8 fl (7.4-10.4); RED BLOOD COUNT 2.78 M/mm3 (4.20-5.60); REDCELL DISTRIBUTION WIDTH-CV 13.3 % (11.5-14.5)
[2021-08-30 08:36] LABS: HEMATOCRIT 24.7 % (42.0-52.0); HEMOGLOBIN 8.3 g/dl (13.5-18.0); MEAN CORPUSCULAR HEMOGLOBIN 30 pg (27.0-31.0); PLATELET COUNT 6 K/mm3 (130-400)
[2021-08-30 09:07] LABS: BAND 4 % (0-10); LYMPHOCYTE 12 % (20.0-51.0); NEUTROPHILS 36 % (42.0-75.2); PLATELET ESTIMATE DECREASED (NORMAL)
[2021-08-30 09:09] VITALS: BP 105/68; PULSE 96; TEMP 97.8
[2021-08-30 11:12] VITALS: BP 109/72; PULSE 79; TEMP 97.6
[2021-08-30 11:28] VITALS: BP 108/67; PULSE 81; TEMP 97.1
[2021-08-30 11:43] VITALS: BP 107/66; PULSE 78; TEMP 97.8
[2021-08-30 12:13] VITALS: BP 114/66; PULSE 67; TEMP 98.4
[2021-08-30 13:02] VITALS: BP 114/63; PULSE 75; TEMP 97.6
[2021-09-02 08:43] LABS: MEAN CELL VOLUME 87 fl (80.0-100.0); MEAN CORPUSCULAR HGB CONC 34 g/dl (33.0-37.0); MEAN PLATELET VOLUME 10.9 fl (7.4-10.4); REDCELL DISTRIBUTION WIDTH-CV 13.4 % (11.5-14.5)
[2021-09-02 08:48] LABS: HEMATOCRIT 20.9 % (42.0-52.0); HEMOGLOBIN 7.2 g/dl (13.5-18.0); MEAN CORPUSCULAR HEMOGLOBIN 30 pg (27.0-31.0)
[2021-09-02 08:49] LABS: PLATELET COUNT 5 K/mm3 (130-400)
[2021-09-02 08:57] LABS: ALBUMIN 2.8 gm/dL (3.4-4.8); BILIRUBIN,TOTAL 0.7 mg/dL (0.2-1.2); CALCIUM 9.4 mg/dL (8.4-10.2); MAGNESIUM 1.8 mg/dL (1.6-2.6); POTASSIUM 3.9 mmol/L (3.5-4.5); TOTAL PROTEIN 6.3 gm/dL (6.2-8.1)
[2021-09-02 09:08] VITALS: BP 99/65; PULSE 107; TEMP 98.4
[2021-09-02 09:46] LABS: BAND 6 % (0-10); LYMPHOCYTE 32 % (20.0-51.0); NEUTROPHILS 53 % (42.0-75.2)
[2021-09-02 09:48] LABS: PLATELET ESTIMATE DECREASED (NORMAL)
[2021-09-02 10:25] VITALS: BP 111/70; PULSE 103; TEMP 97
[2021-09-02 10:40] VITALS: BP 105/69; PULSE 99; TEMP 97.3
[2021-09-02 11:10] VITALS: BP 93/60; PULSE 90; TEMP 97.2
[2021-09-02 12:10] VITALS: BP 95/62; PULSE 84; TEMP 97
[2021-09-02 12:43] VITALS: BP 116/66; PULSE 82; TEMP 97.5
--- NOTE | 2021-09-02 15:45 | NUR ---
0811 - [facility] with notes stating " We can definitely set up hospice if the patient is ready." Current [facility] staff not aware of a hospice request or conversation. Patient scheduled for transfusion today. 1210 - Contact made with office nurse, Marta, regarding note on fax & plan. Marta states that there was a message left on Thursday regarding patient asking about hospice options; message was from [facility] charge nurse. This author would talk with patient today about his knowledge of situation & follow-up with Marta. 1245 - This author talked with patient for approximately 30 minutes about what communication he had received from his care team, his understanding & his plan. Discussed recent issues with his eye & his MRI that was completed on Thursday (waiting results). Patient stated that he met with his PCP (Dr. Roland) last week & she was needing more information from Oncology. He meets with his Oncologist (Dr. Riggins) this Thursday. Patient stated that he is prepared to hear that he may not be able to get anymore blood products & he acknowledged that other patients may need them worse than him. Patient had many questions about hospice (at home vs. at hospice house). Stated that his family knows the end is near, but he needs to hear from his Oncologist that there is nothing else that can be done. Patient is not ready to give up, but knows he is nearing the end. Advised patient that this author would follow-up with Marta at [facility] about his plans this week. 0461 - Talked with NOLAN Lozano at [facility] about conversation with patient today. Patient was previously scheduled to meet with Dr. Riggins this Thursday & plans to keep appointment to discuss plan of care moving forward.
[2021-09-03 13:24] VITALS: BP 101/67; PULSE 88
[2021-09-03 14:10] VITALS: BP 109/66; PULSE 78; TEMP 97.7
[2021-09-03 14:30] VITALS: BP 115/62; PULSE 75; TEMP 98
[2021-09-03 14:45] VITALS: BP 111/68; PULSE 79; TEMP 98.1
[2021-09-03 15:15] VITALS: BP 114/75; PULSE 79; TEMP 98
[2021-09-03 16:15] VITALS: BP 137/74; PULSE 74; TEMP 97.8
--- NOTE | 2021-09-03 16:35 | NUR ---
Port flushed per orders. Port remains accessed as pt will return tomorrow for blood draw. He tolerated today's infusion without issue. He is escorted out to elevator. Gait is steady with use of wheeled walker.
[2021-09-04] VITALS (10 sets, daily range): BP systolic 104–132; BP diastolic 50–70; PULSE 75–85; TEMP 98.4–98.9
[2021-09-04 08:39] LABS: MEAN CELL VOLUME 86 fl (80.0-100.0); MEAN CORPUSCULAR HGB CONC 34 g/dl (33.0-37.0); MEAN PLATELET VOLUME 9.7 fl (7.4-10.4); RED BLOOD COUNT 2.41 M/mm3 (4.20-5.60); REDCELL DISTRIBUTION WIDTH-CV 13.5 % (11.5-14.5)
[2021-09-04 08:40] LABS: HEMATOCRIT 20.8 % (42.0-52.0); HEMOGLOBIN 7.1 g/dl (13.5-18.0); MEAN CORPUSCULAR HEMOGLOBIN 29 pg (27.0-31.0); PLATELET COUNT 6 K/mm3 (130-400)
[2021-09-04 09:54] LABS: BAND 1 % (0-10); LYMPHOCYTE 62 % (20.0-51.0); NEUTROPHILS 35 % (42.0-75.2); PLATELET ESTIMATE DECREASED (NORMAL)
--- NOTE | 2021-09-04 11:00 | NUR ---
Encoraged pt to let staff assist ambulating to vehicle with wheelchair.Pt refuses but agress to let staff walk beside him.Pt uses front wheeled walker.
[2021-09-06 08:23] LABS: MEAN CELL VOLUME 87 fl (80.0-100.0); MEAN CORPUSCULAR HGB CONC 34 g/dl (33.0-37.0); MEAN PLATELET VOLUME 9.8 fl (7.4-10.4); RED BLOOD COUNT 2.84 M/mm3 (4.20-5.60); REDCELL DISTRIBUTION WIDTH-CV 13.4 % (11.5-14.5)
[2021-09-06 08:37] LABS: HEMATOCRIT 24.7 % (42.0-52.0); HEMOGLOBIN 8.4 g/dl (13.5-18.0); MEAN CORPUSCULAR HEMOGLOBIN 30 pg (27.0-31.0)
[2021-09-06 08:38] LABS: PLATELET COUNT 5 K/mm3 (130-400)
[2021-09-06 08:57] LABS: BAND 4 % (0-10); METAMYELOCYTE 1 % (0-0); NEUTROPHILS 37 % (42.0-75.2); PLATELET ESTIMATE DECREASED (NORMAL)
[2021-09-06 10:42] VITALS: BP 110/63; PULSE 83; TEMP 98.2
[2021-09-06 11:03] VITALS: BP 107/64; PULSE 78; TEMP 98.1
[2021-09-06 11:13] LABS: PATHOLOGY DIFF REVIEW OK +
[2021-09-06 11:20] VITALS: BP 111/64; PULSE 78; TEMP 97.8
[2021-09-06 11:48] VITALS: BP 123/65; PULSE 81; TEMP 97.8
--- NOTE | 2021-09-06 11:50 | NUR ---
infusion completed, port flushed per protocol and vap needle removed with bandaid over site
--- NOTE | 2021-09-06 12:10 | NUR ---
PT TO LOBBY VIA WHEELED WALKER WITH STAFF TO SIT IN CHAIR TO WAIT FOR FAMILY
[2021-09-06 12:23] VITALS: BP 112/70; PULSE 87
[2021-09-06 12:42] LABS: LYMPHOCYTE 27 % (20.0-51.0)
--- NOTE | 2021-09-06 13:31 | NUR ---
PT RESTED IN RECLINER IN EU FOR 1 HOUR, PT CALLED FAMILY TO PICK HIM UP, NO C/O PAIN, PT DOES HAVE OLD PURPLE COLOR BRUISING TO LOW BACK AND TO RIGHT HIP AREA PT STATES FROM FALL AT HOME SEVERAL WEEKS AGO, PT STATES HAVING NO PAIN, STATES WILL GO TO ER IF HAVING ANY PROBLEMS
--- NOTE | 2021-09-06 13:35 | NUR ---
Pt escorted out via wheelchair by this nurse.
[2021-09-09 08:42] VITALS: BP 112/83; PULSE 72; TEMP 97.8
[2021-09-09 08:44] LABS: MEAN CELL VOLUME 89 fl (80.0-100.0); MEAN CORPUSCULAR HGB CONC 34 g/dl (33.0-37.0); MEAN PLATELET VOLUME 10.2 fl (7.4-10.4); RED BLOOD COUNT 2.36 M/mm3 (4.20-5.60); REDCELL DISTRIBUTION WIDTH-CV 13.6 % (11.5-14.5)
[2021-09-09 08:59] LABS: ALBUMIN 2.9 gm/dL (3.4-4.8); CALCIUM 9.9 mg/dL (8.4-10.2); CREATININE, serum 0.85 mg/dL (0.72-1.25); MAGNESIUM 1.8 mg/dL (1.6-2.6); POTASSIUM 3.9 mmol/L (3.5-4.5); TOTAL PROTEIN 6.1 gm/dL (6.2-8.1)
[2021-09-09 09:13] LABS: BAND 3 % (0-10); METAMYELOCYTE 1 % (0-0); NEUTROPHILS 61 % (42.0-75.2); PLATELET ESTIMATE DECREASED (NORMAL)
[2021-09-09 09:16] LABS: HEMATOCRIT 20.9 % (42.0-52.0); HEMOGLOBIN 7.1 g/dl (13.5-18.0); MEAN CORPUSCULAR HEMOGLOBIN 30 pg (27.0-31.0)
[2021-09-09 09:18] LABS: PLATELET COUNT 5 K/mm3 (130-400)
[2021-09-09 09:23] LABS: BILIRUBIN,TOTAL 0.8 mg/dL (0.2-1.2); LYMPHOCYTE 30 % (20.0-51.0)
[2021-09-10] VITALS (9 sets, daily range): BP systolic 115–134; BP diastolic 69–78; PULSE 72–83; TEMP 97.4–98.8
--- NOTE | 2021-09-10 17:59 | NUR ---
Pt tolerated his transfusions again with no problem today. Pt is escorted to exit via wheelchair.
[2021-09-11 08:20] LABS: PATHOLOGY DIFF REVIEW OK
[2021-09-11 08:29] LABS: HEMATOCRIT 25.9 % (42.0-52.0); HEMOGLOBIN 8.6 g/dl (13.5-18.0); MEAN CELL VOLUME 90 fl (80.0-100.0); MEAN CORPUSCULAR HEMOGLOBIN 30 pg (27.0-31.0); MEAN CORPUSCULAR HGB CONC 33 g/dl (33.0-37.0); MEAN PLATELET VOLUME 11.8 fl (7.4-10.4); PLATELET COUNT 9 K/mm3 (130-400); RED BLOOD COUNT 2.89 M/mm3 (4.20-5.60); REDCELL DISTRIBUTION WIDTH-CV 13.5 % (11.5-14.5)
[2021-09-11 08:30] VITALS: BP 121/68; PULSE 72; TEMP 97.9
[2021-09-11 08:42] LABS: ANISOCYTOSIS 1+; BAND 2 % (0-10); LYMPHOCYTE 33 % (20.0-51.0); MYELOCYTE 4 % (0-0); NEUTROPHILS 57 % (42.0-75.2); PLATELET ESTIMATE DECREASED (NORMAL)
[2021-09-11 10:11] VITALS: BP 131/69; PULSE 80; TEMP 98.5
[2021-09-11 10:26] VITALS: BP 128/72; PULSE 77; TEMP 97.8
[2021-09-11 10:56] VITALS: BP 112/66; PULSE 76; TEMP 97.9
[2021-09-11 11:38] VITALS: BP 110/62; PULSE 72; TEMP 98
[2021-09-13 08:10] VITALS: BP 114/70; PULSE 78; TEMP 97.7
[2021-09-13 08:43] LABS: MEAN CELL VOLUME 90 fl (80.0-100.0); MEAN CORPUSCULAR HGB CONC 33 g/dl (33.0-37.0); MEAN PLATELET VOLUME 10.4 fl (7.4-10.4); RED BLOOD COUNT 2.34 M/mm3 (4.20-5.60); REDCELL DISTRIBUTION WIDTH-CV 13.8 % (11.5-14.5)
[2021-09-13 09:04] LABS: HEMATOCRIT 21.1 % (42.0-52.0); MEAN CORPUSCULAR HEMOGLOBIN 30 pg (27.0-31.0)
[2021-09-13 09:05] LABS: PLATELET COUNT 9 K/mm3 (130-400)
[2021-09-13 09:24] LABS: BAND 4 % (0-10); METAMYELOCYTE 1 % (0-0); NEUTROPHILS 60 % (42.0-75.2); PLATELET ESTIMATE DECREASED (NORMAL)
[2021-09-13 09:25] LABS: LYMPHOCYTE 30 % (20.0-51.0)
[2021-09-13 10:14] VITALS: BP 101/63; PULSE 82; TEMP 98.2
[2021-09-13 10:25] VITALS: BP 109/52; PULSE 83; TEMP 98
[2021-09-13 10:40] VITALS: BP 113/56; PULSE 81; TEMP 98
[2021-09-13 11:10] VITALS: BP 103/55; PULSE 76; TEMP 98.2
[2021-09-13 11:54] VITALS: BP 103/55; PULSE 76; TEMP 98.2
[2021-09-14 14:52] VITALS: BP 116/66; PULSE 70; TEMP 98.1
[2021-09-14 15:09] VITALS: BP 120/60; PULSE 71; TEMP 99.1
[2021-09-14 15:24] VITALS: BP 128/61; PULSE 71; TEMP 98.3
[2021-09-14 15:54] VITALS: BP 126/71; PULSE 70; TEMP 98.1
[2021-09-14 16:54] VITALS: BP 128/69; PULSE 66
[2021-09-14 17:41] VITALS: BP 140/72; PULSE 77; TEMP 97.8
--- NOTE | 2021-09-14 18:02 | NUR ---
Pt completed unit of blood without any complications. PAC deaccessed, pt walked out of facility by staff member at this time.
[2021-09-16] VITALS (10 sets, daily range): BP systolic 94–135; BP diastolic 60–76; PULSE 71–83; TEMP 97.9–99.1
[2021-09-16 08:52] LABS: MEAN CELL VOLUME 91 fl (80.0-100.0); MEAN CORPUSCULAR HGB CONC 33 g/dl (33.0-37.0); MEAN PLATELET VOLUME 9.6 fl (7.4-10.4); RED BLOOD COUNT 2.39 M/mm3 (4.20-5.60); REDCELL DISTRIBUTION WIDTH-CV 14.1 % (11.5-14.5)
[2021-09-16 08:53] LABS: HEMATOCRIT 21.8 % (42.0-52.0); HEMOGLOBIN 7.1 g/dl (13.5-18.0); MEAN CORPUSCULAR HEMOGLOBIN 30 pg (27.0-31.0)
[2021-09-16 08:55] LABS: PLATELET COUNT 4 K/mm3 (130-400)
[2021-09-16 09:24] LABS: BAND 2 % (0-10); METAMYELOCYTE 1 % (0-0); NEUTROPHILS 51 % (42.0-75.2); PLATELET ESTIMATE DECREASED (NORMAL)
[2021-09-16 09:25] LABS: LYMPHOCYTE 42 % (20.0-51.0)
--- NOTE | 2021-09-16 17:54 | NUR ---
Report to Chente Freeman.
[2021-09-18 08:00] VITALS: BP 117/61; PULSE 80; TEMP 98
[2021-09-18 08:52] LABS: MEAN CELL VOLUME 89 fl (80.0-100.0); MEAN CORPUSCULAR HGB CONC 34 g/dl (33.0-37.0); MEAN PLATELET VOLUME 10.5 fl (7.4-10.4); RED BLOOD COUNT 2.54 M/mm3 (4.20-5.60); REDCELL DISTRIBUTION WIDTH-CV 13.7 % (11.5-14.5)
[2021-09-18 08:58] LABS: HEMATOCRIT 22.7 % (42.0-52.0); HEMOGLOBIN 7.6 g/dl (13.5-18.0); MEAN CORPUSCULAR HEMOGLOBIN 30 pg (27.0-31.0)
[2021-09-18 08:59] LABS: PLATELET COUNT 6 K/mm3 (130-400)
[2021-09-18 09:18] LABS: BAND 5 % (0-10); METAMYELOCYTE 3 % (0-0); NEUTROPHILS 37 % (42.0-75.2); PLATELET ESTIMATE DECREASED (NORMAL)
[2021-09-18 09:19] LABS: LYMPHOCYTE 35 % (20.0-51.0)
[2021-09-18 10:29] VITALS: BP 106/57; PULSE 81; TEMP 98
[2021-09-18 10:44] VITALS: BP 107/57; PULSE 81; TEMP 99
[2021-09-18 11:00] VITALS: BP 107/61; PULSE 81; TEMP 99
[2021-09-18 11:30] VITALS: BP 100/60; PULSE 80; TEMP 98
[2021-09-18 12:03] VITALS: BP 99/60; PULSE 82; TEMP 98.7
[2021-09-19 13:49] VITALS: BP 130/78; PULSE 95; TEMP 98.6
[2021-09-19 14:25] VITALS: BP 123/74; PULSE 87; TEMP 98.6
[2021-09-19 14:40] VITALS: BP 122/71; PULSE 84; TEMP 98.4
[2021-09-19 15:10] VITALS: BP 113/72; PULSE 81; TEMP 98.6
[2021-09-19 15:20] VITALS: BP 121/74; PULSE 81; TEMP 98.6
--- NOTE | 2021-09-19 15:40 | NUR ---
Pt tolerated transfusion with no problem today. port heparanized and remains accessed for lab draw tomorrow. I walked with pt to exit, he was ambulatory with a walker.
[2021-09-20 09:01] VITALS: BP 99/54; PULSE 107; TEMP 98.8
[2021-09-20 09:03] LABS: MEAN CELL VOLUME 89 fl (80.0-100.0); MEAN CORPUSCULAR HGB CONC 34 g/dl (33.0-37.0); MEAN PLATELET VOLUME 9.6 fl (7.4-10.4); RED BLOOD COUNT 2.59 M/mm3 (4.20-5.60); REDCELL DISTRIBUTION WIDTH-CV 14.6 % (11.5-14.5)
[2021-09-20 09:27] LABS: HEMOGLOBIN 7.7 g/dl (13.5-18.0); MEAN CORPUSCULAR HEMOGLOBIN 30 pg (27.0-31.0)
[2021-09-20 09:30] LABS: PLATELET COUNT 4 K/mm3 (130-400)
[2021-09-20 10:13] LABS: LYMPHOCYTE 36 % (20.0-51.0); METAMYELOCYTE 1 % (0-0); NEUTROPHILS 57 % (42.0-75.2)
[2021-09-20 10:14] LABS: PLATELET ESTIMATE DECREASED (NORMAL)
[2021-09-20 11:57] VITALS: BP 121/67; PULSE 101; TEMP 98.5
[2021-09-20 12:29] VITALS: BP 104/61; PULSE 101; TEMP 98.6
[2021-09-20 12:44] VITALS: BP 111/61; PULSE 96; TEMP 98.5
[2021-09-20 13:14] VITALS: BP 97/59; PULSE 100; TEMP 99.2
[2021-09-20 13:50] VITALS: BP 114/57; PULSE 97; TEMP 98.9
--- NOTE | 2021-09-20 13:57 | NUR ---
Pt assisted out by wheelchair to hospital entrance where he will wait for his daughter to pick him up. Port remains accessed as pt will return tomorrow at 1400 for RBC transfusion to be given on the Medical floor. Pt aware of this, and orders given to house detective.
[~2021-09-21] VITALS: Ht 172.7 cm; Wt 81.7 kg
[~2021-09-21 13:00] MED LIST changes: +FLOXIN OTIC DROP5 ML OS; +PREDNISONE1 MG PO; +RESTORIL 1515 MG/CAP PO
[2021-09-21 13:22] VITALS: BP 122/70; PULSE 84; TEMP 98.5
[2021-09-21 13:38] VITALS: BP 106/65; PULSE 82; TEMP 98.8
[2021-09-21 14:13] VITALS: BP 116/68; PULSE 79; TEMP 98.6
[2021-09-21 14:58] VITALS: BP 129/69; PULSE 82
== END 2021-09-21 15:40 | disposition home or self-care (01) ==
LOC: EUO 13:00
PROVIDERS: Internal Medicine; Optometrist
DX: D46.22 Refractory anemia with excess of blasts 2 (principal); D69.6 Thrombocytopenia, unspecified; D46.9 Myelodysplastic syndrome, unspecified
CPT/HCPCS: J1644; J7050; P9016; P9035; P9040

== ENCOUNTER → 2021-11-15 | Outpatient (RCR) | payer MEDICARE, BC ==
[2021-09-23 08:50] LABS: MEAN CELL VOLUME 89 fl (80.0-100.0); MEAN CORPUSCULAR HGB CONC 33 g/dl (33.0-37.0); MEAN PLATELET VOLUME 9.9 fl (7.4-10.4); RED BLOOD COUNT 2.57 M/mm3 (4.20-5.60); REDCELL DISTRIBUTION WIDTH-CV 14.1 % (11.5-14.5)
[2021-09-23 09:00] LABS: ALBUMIN 2.7 gm/dL (3.4-4.8); BILIRUBIN,TOTAL 0.8 mg/dL (0.2-1.2); CALCIUM 9.4 mg/dL (8.4-10.2); CREATININE, serum 0.95 mg/dL (0.72-1.25); MAGNESIUM 1.9 mg/dL (1.6-2.6); POTASSIUM 3.8 mmol/L (3.5-4.5); TOTAL PROTEIN 6.3 gm/dL (6.2-8.1)
[2021-09-23 09:04] VITALS: BP 116/69; PULSE 79; TEMP 98.5
[2021-09-23 09:37] LABS: HEMATOCRIT 22.8 % (42.0-52.0); HEMOGLOBIN 7.6 g/dl (13.5-18.0); MEAN CORPUSCULAR HEMOGLOBIN 30 pg (27.0-31.0)
[2021-09-23 09:38] LABS: PLATELET COUNT 4 K/mm3 (130-400)
[2021-09-23 09:52] LABS: BAND 1 % (0-10); METAMYELOCYTE 1 % (0-0); NEUTROPHILS 50 % (42.0-75.2)
[2021-09-23 09:53] LABS: PLATELET ESTIMATE DECREASED (NORMAL)
[2021-09-23 09:57] LABS: LYMPHOCYTE 34 % (20.0-51.0)
[2021-09-23 11:23] VITALS: BP 121/73; PULSE 80; TEMP 98.6
[2021-09-23 11:40] VITALS: BP 104/65; PULSE 77; TEMP 97.4
[2021-09-23 11:55] VITALS: BP 105/63; PULSE 76; TEMP 98.9
[2021-09-23 12:25] VITALS: BP 106/66; PULSE 80; TEMP 98.7
[2021-09-23 13:25] VITALS: BP 114/69; PULSE 77; TEMP 98.8
[2021-09-24 13:36] VITALS: BP 104/58; PULSE 81; TEMP 98.9
[2021-09-24 13:55] VITALS: BP 112/64; PULSE 80; TEMP 98.2
[2021-09-24 14:10] VITALS: BP 113/65; PULSE 81; TEMP 98.7
[2021-09-24 14:40] VITALS: BP 121/64; PULSE 81; TEMP 98.6
[2021-09-24 15:37] VITALS: BP 114/62; PULSE 76; TEMP 98.8
[2021-09-24 16:37] VITALS: BP 114/62; PULSE 76; TEMP 98.8
[2021-09-25 08:36] LABS: MEAN CELL VOLUME 88 fl (80.0-100.0); MEAN CORPUSCULAR HGB CONC 33 g/dl (33.0-37.0); MEAN PLATELET VOLUME 10.9 fl (7.4-10.4); RED BLOOD COUNT 2.79 M/mm3 (4.20-5.60)
[2021-09-25 08:37] LABS: HEMATOCRIT 24.6 % (42.0-52.0); HEMOGLOBIN 8.1 g/dl (13.5-18.0); MEAN CORPUSCULAR HEMOGLOBIN 29 pg (27.0-31.0)
[2021-09-25 08:38] LABS: PLATELET COUNT 8 K/mm3 (130-400)
--- NOTE | 2021-09-25 08:45 | NUR ---
Marta of [facility] notified of patient's plt 8, hgb 8.1. Will call back with orders.
[2021-09-25 08:56] VITALS: BP 113/67; PULSE 90; TEMP 98.5
[2021-09-25 09:09] LABS: ANISOCYTOSIS 1+; HYPOCHROMIA 1+; LYMPHOCYTE 45 % (20.0-51.0); NEUTROPHILS 42 % (42.0-75.2); PLATELET ESTIMATE DECREASED (NORMAL)
[2021-09-25 11:15] VITALS: BP 154/67; PULSE 84; TEMP 98
[2021-09-25 11:39] VITALS: BP 113/65; PULSE 83; TEMP 98.7
[2021-09-25 11:54] VITALS: BP 113/68; PULSE 86; TEMP 98.2
[2021-09-25 12:24] VITALS: BP 113/67; PULSE 80; TEMP 98.3
[2021-09-25 12:59] VITALS: BP 114/68; PULSE 80; TEMP 98.2
[2021-09-27] VITALS (10 sets, daily range): BP systolic 101–122; BP diastolic 61–66; PULSE 70–87; TEMP 97.6–98.8
[2021-09-27 08:29] LABS: MEAN CELL VOLUME 89 fl (80.0-100.0); MEAN CORPUSCULAR HGB CONC 33 g/dl (33.0-37.0); MEAN PLATELET VOLUME 12.2 fl (7.4-10.4); RED BLOOD COUNT 2.67 M/mm3 (4.20-5.60); REDCELL DISTRIBUTION WIDTH-CV 14.1 % (11.5-14.5)
[2021-09-27 08:33] LABS: HEMATOCRIT 23.8 % (42.0-52.0); HEMOGLOBIN 7.8 g/dl (13.5-18.0); MEAN CORPUSCULAR HEMOGLOBIN 29 pg (27.0-31.0)
[2021-09-27 08:36] LABS: PLATELET COUNT 7 K/mm3 (130-400)
[2021-09-27 08:54] LABS: ANISOCYTOSIS 1+; BAND 2 % (0-10); HYPOCHROMIA 1+; LYMPHOCYTE 46 % (20.0-51.0); MYELOCYTE 2 % (0-0); NEUTROPHILS 45 % (42.0-75.2); PLATELET ESTIMATE DECREASED (NORMAL)
--- NOTE | 2021-09-27 14:20 | NUR ---
Pt tolerated his transfusions again today with no problem. He was amb to br several times with assist. Port was flushed with saline and heparin per protocol and port was deaccessed prior to his departure. to exit via wheelchair.
[2021-09-30] VITALS (11 sets, daily range): BP systolic 99–140; BP diastolic 61–81; PULSE 70–84; TEMP 97.4–98.6
[2021-09-30 08:42] LABS: ALBUMIN 2.8 gm/dL (3.4-4.8); BILIRUBIN,TOTAL 0.7 mg/dL (0.2-1.2); CALCIUM 9.3 mg/dL (8.4-10.2); CREATININE, serum 0.88 mg/dL (0.72-1.25); POTASSIUM 3.8 mmol/L (3.5-4.5); TOTAL PROTEIN 6.2 gm/dL (6.2-8.1)
[2021-09-30 08:44] LABS: MEAN CELL VOLUME 90 fl (80.0-100.0); MEAN CORPUSCULAR HGB CONC 33 g/dl (33.0-37.0); MEAN PLATELET VOLUME 10.1 fl (7.4-10.4); RED BLOOD COUNT 2.63 M/mm3 (4.20-5.60); REDCELL DISTRIBUTION WIDTH-CV 14.2 % (11.5-14.5)
[2021-09-30 08:46] LABS: HEMATOCRIT 23.7 % (42.0-52.0); HEMOGLOBIN 7.7 g/dl (13.5-18.0); MEAN CORPUSCULAR HEMOGLOBIN 29 pg (27.0-31.0)
[2021-09-30 08:48] LABS: PLATELET COUNT 3 K/mm3 (130-400)
[2021-09-30 09:31] LABS: ANISOCYTOSIS 1+; BAND 5 % (0-10); LYMPHOCYTE 44 % (20.0-51.0); MYELOCYTE 1 % (0-0); NEUTROPHILS 44 % (42.0-75.2); PLATELET ESTIMATE DECREASED (NORMAL)
--- NOTE | 2021-09-30 14:15 | NUR ---
PRBC INFUSED, LINE FLUSHED, VAP LEFT IN AND FLUSHED WITH HEPARIN AND TAPED DOWN, PT UP TO B/R WITH STANDBY ASSIST, THEN DISCHARGED VIA W/C TO LOBBY WITH FAMILY
[2021-10-02 08:17] LABS: MEAN CELL VOLUME 88 fl (80.0-100.0); MEAN CORPUSCULAR HGB CONC 33 g/dl (33.0-37.0); MEAN PLATELET VOLUME 9.5 fl (7.4-10.4); RED BLOOD COUNT 2.86 M/mm3 (4.20-5.60); REDCELL DISTRIBUTION WIDTH-CV 14.4 % (11.5-14.5)
[2021-10-02 08:19] VITALS: BP 105/70; PULSE 84; TEMP 98.5
[2021-10-02 08:21] LABS: HEMATOCRIT 25.2 % (42.0-52.0); HEMOGLOBIN 8.3 g/dl (13.5-18.0); MEAN CORPUSCULAR HEMOGLOBIN 29 pg (27.0-31.0)
[2021-10-02 08:22] LABS: PLATELET COUNT 6 K/mm3 (130-400)
[2021-10-02 08:40] LABS: BAND 5 % (0-10); HYPOCHROMIA 1+; PLATELET ESTIMATE DECREASED (NORMAL)
[2021-10-02 08:41] LABS: LYMPHOCYTE 30 % (20.0-51.0); NEUTROPHILS 49 % (42.0-75.2)
[2021-10-03 08:26] VITALS: BP 110/76; PULSE 81; TEMP 97.8
[2021-10-03 08:59] VITALS: BP 119/75; PULSE 73; TEMP 98.4
[2021-10-03 09:14] VITALS: BP 116/73; PULSE 69; TEMP 98.1
[2021-10-03 09:44] VITALS: BP 117/72; PULSE 74; TEMP 97.7
[2021-10-03 09:57] VITALS: BP 122/77; PULSE 73; TEMP 98
[2021-10-04] VITALS (10 sets, daily range): BP systolic 95–117; BP diastolic 60–99; PULSE 75–83; TEMP 98–98.9
[2021-10-04 08:22] LABS: MEAN CELL VOLUME 89 fl (80.0-100.0); MEAN CORPUSCULAR HGB CONC 33 g/dl (33.0-37.0); MEAN PLATELET VOLUME 10.5 fl (7.4-10.4); RED BLOOD COUNT 2.67 M/mm3 (4.20-5.60); REDCELL DISTRIBUTION WIDTH-CV 14.2 % (11.5-14.5)
[2021-10-04 08:36] LABS: HEMATOCRIT 23.7 % (42.0-52.0); HEMOGLOBIN 7.8 g/dl (13.5-18.0); MEAN CORPUSCULAR HEMOGLOBIN 29 pg (27.0-31.0)
[2021-10-04 08:37] LABS: PLATELET COUNT 9 K/mm3 (130-400)
[2021-10-04 09:16] LABS: BAND 2 % (0-10); NEUTROPHILS 50 % (42.0-75.2)
[2021-10-04 09:17] LABS: HYPOCHROMIA 1+; PLATELET ESTIMATE DECREASED (NORMAL)
[2021-10-04 09:18] LABS: LYMPHOCYTE 28 % (20.0-51.0)
--- NOTE | 2021-10-04 14:30 | NUR ---
after transfusions port flushed per protocol and removed with dressing over site, pt waits for family and then discharged via w/c to car
[2021-10-07 08:50] LABS: MEAN CELL VOLUME 86 fl (80.0-100.0); MEAN CORPUSCULAR HGB CONC 33 g/dl (33.0-37.0); MEAN PLATELET VOLUME 9.6 fl (7.4-10.4); RED BLOOD COUNT 2.85 M/mm3 (4.20-5.60); REDCELL DISTRIBUTION WIDTH-CV 14.4 % (11.5-14.5)
[2021-10-07 08:51] VITALS: BP 94/60; PULSE 86; TEMP 97.8
[2021-10-07 09:15] LABS: HEMATOCRIT 24.6 % (42.0-52.0); MEAN CORPUSCULAR HEMOGLOBIN 28 pg (27.0-31.0)
[2021-10-07 09:16] LABS: PLATELET COUNT 5 K/mm3 (130-400)
[2021-10-07 09:22] LABS: BAND 5 % (0-10); METAMYELOCYTE 1 % (0-0); NEUTROPHILS 36 % (42.0-75.2); PLATELET ESTIMATE DECREASED (NORMAL)
[2021-10-07 09:23] LABS: LYMPHOCYTE 37 % (20.0-51.0)
[2021-10-07 10:34] VITALS: BP 114/74; PULSE 81; TEMP 97.8
[2021-10-07 10:49] VITALS: BP 110/72; PULSE 79; TEMP 97.6
[2021-10-07 11:19] VITALS: BP 116/72; PULSE 96; TEMP 97.9
[2021-10-07 12:05] VITALS: BP 113/74; PULSE 72; TEMP 97.9
[2021-10-09] VITALS (14 sets, daily range): BP systolic 12–157; BP diastolic 60–86; PULSE 84–104; TEMP 97.1–98.7
[2021-10-09 08:55] LABS: MEAN CELL VOLUME 86 fl (80.0-100.0); MEAN CORPUSCULAR HGB CONC 33 g/dl (33.0-37.0); MEAN PLATELET VOLUME 10.5 fl (7.4-10.4); RED BLOOD COUNT 2.45 M/mm3 (4.20-5.60); REDCELL DISTRIBUTION WIDTH-CV 14.3 % (11.5-14.5)
[2021-10-09 08:57] LABS: HEMATOCRIT 21.1 % (42.0-52.0); HEMOGLOBIN 6.9 g/dl (13.5-18.0); MEAN CORPUSCULAR HEMOGLOBIN 28 pg (27.0-31.0)
[2021-10-09 08:58] LABS: PLATELET COUNT 5 K/mm3 (130-400)
[2021-10-09 09:45] LABS: BAND 3 % (0-10); HYPOCHROMIA 2+; LYMPHOCYTE 15 % (20.0-51.0); METAMYELOCYTE 10 % (0-0); NEUTROPHILS 55 % (42.0-75.2); PLATELET ESTIMATE DECREASED (NORMAL)
[2021-10-09 09:46] LABS: ANISOCYTOSIS 1+
[2021-10-11 08:27] VITALS: BP 139/72; PULSE 82; TEMP 98
[2021-10-11 08:47] LABS: MEAN CELL VOLUME 86 fl (80.0-100.0); MEAN CORPUSCULAR HGB CONC 33 g/dl (33.0-37.0); RED BLOOD COUNT 3.07 M/mm3 (4.20-5.60); REDCELL DISTRIBUTION WIDTH-CV 15.3 % (11.5-14.5)
[2021-10-11 08:48] LABS: HEMATOCRIT 26.3 % (42.0-52.0); HEMOGLOBIN 8.6 g/dl (13.5-18.0); MEAN CORPUSCULAR HEMOGLOBIN 28 pg (27.0-31.0)
[2021-10-11 08:49] LABS: PLATELET COUNT 11 K/mm3 (130-400)
[2021-10-11 09:20] LABS: BAND 3 % (0-10); MYELOCYTE 1 % (0-0); NEUTROPHILS 37 % (42.0-75.2)
[2021-10-11 09:21] LABS: LYMPHOCYTE 30 % (20.0-51.0); MICROCYTOSIS 1+; PLATELET ESTIMATE DECREASED (NORMAL)
[2021-10-14 08:46] LABS: MEAN CELL VOLUME 83 fl (80.0-100.0); MEAN CORPUSCULAR HGB CONC 35 g/dl (33.0-37.0); MEAN PLATELET VOLUME 12.1 fl (7.4-10.4); RED BLOOD COUNT 2.72 M/mm3 (4.20-5.60)
[2021-10-14 08:54] LABS: HEMATOCRIT 22.5 % (42.0-52.0); HEMOGLOBIN 7.8 g/dl (13.5-18.0); MEAN CORPUSCULAR HEMOGLOBIN 29 pg (27.0-31.0)
[2021-10-14 08:56] LABS: PLATELET COUNT 6 K/mm3 (130-400)
[2021-10-14 09:04] VITALS: BP 114/66; PULSE 81; TEMP 98.5
[2021-10-14 09:46] LABS: BAND 1 % (0-10); EOSINOPHIL 1 % (0-4); LYMPHOCYTE 56 % (20.0-51.0); NEUTROPHILS 37 % (42.0-75.2)
[2021-10-14 09:48] LABS: PLATELET ESTIMATE DECREASED (NORMAL)
[2021-10-14 11:02] VITALS: BP 97/64; PULSE 78; TEMP 98.8
[2021-10-14 11:18] VITALS: BP 106/64; PULSE 73; TEMP 98.9
[2021-10-14 11:33] VITALS: BP 106/62; PULSE 77; TEMP 98.5
[2021-10-14 12:03] VITALS: BP 103/57; PULSE 78; TEMP 99.3
[2021-10-14 13:03] VITALS: BP 96/59; PULSE 83; TEMP 98.7
[2021-10-15 15:23] VITALS: BP 114/70; PULSE 84; TEMP 98.5
[2021-10-15 15:40] VITALS: BP 116/71; PULSE 80; TEMP 98.7
[2021-10-15 15:55] VITALS: BP 124/69; PULSE 78; TEMP 98.8
[2021-10-15 16:25] VITALS: BP 144/83; PULSE 74; TEMP 98.5
[2021-10-15 17:05] VITALS: BP 114/78; PULSE 80; TEMP 99
[2021-10-16 08:44] LABS: MEAN CELL VOLUME 86 fl (80.0-100.0); MEAN CORPUSCULAR HGB CONC 33 g/dl (33.0-37.0); MEAN PLATELET VOLUME 9.8 fl (7.4-10.4); RED BLOOD COUNT 2.79 M/mm3 (4.20-5.60); REDCELL DISTRIBUTION WIDTH-CV 14.8 % (11.5-14.5)
[2021-10-16 09:05] LABS: MEAN CORPUSCULAR HEMOGLOBIN 29 pg (27.0-31.0)
[2021-10-16 09:06] LABS: PLATELET COUNT 11 K/mm3 (130-400)
[2021-10-16 09:22] LABS: LYMPHOCYTE 48 % (20.0-51.0); NEUTROPHILS 47 % (42.0-75.2); PLATELET ESTIMATE DECREASED (NORMAL)
[2021-10-16 09:36] VITALS: BP 100/64; PULSE 83; TEMP 98.4
[2021-10-18] VITALS (11 sets, daily range): BP systolic 104–129; BP diastolic 62–81; PULSE 73–81; TEMP 97.4–98.5
[2021-10-18 08:21] LABS: MEAN CELL VOLUME 85 fl (80.0-100.0); MEAN CORPUSCULAR HGB CONC 34 g/dl (33.0-37.0); MEAN PLATELET VOLUME 10.8 fl (7.4-10.4); REDCELL DISTRIBUTION WIDTH-CV 14.8 % (11.5-14.5)
[2021-10-18 08:27] LABS: HEMOGLOBIN 7.7 g/dl (13.5-18.0); MEAN CORPUSCULAR HEMOGLOBIN 29 pg (27.0-31.0)
[2021-10-18 08:28] LABS: PLATELET COUNT 7 K/mm3 (130-400)
[2021-10-18 09:10] LABS: LYMPHOCYTE 66 % (20.0-51.0); NEUTROPHILS 31 % (42.0-75.2); PLATELET ESTIMATE DECREASED (NORMAL)
--- NOTE | 2021-10-18 14:24 | NUR ---
Pt returned for transfusion of unit of platelet and PRBC. Port remains accessed, and will be deaccessed following transfusions.
--- NOTE | 2021-10-18 18:53 | NUR ---
TO exit via wheelchair; no problems with transfusions today. port flushed with 20 cc saline and 5 cc hep flush per protocol and deaccessed today prior to Sammy's departure.
[2021-10-21 08:42] LABS: MEAN CELL VOLUME 86 fl (80.0-100.0); MEAN CORPUSCULAR HGB CONC 34 g/dl (33.0-37.0); MEAN PLATELET VOLUME 9.8 fl (7.4-10.4); RED BLOOD COUNT 2.85 M/mm3 (4.20-5.60); REDCELL DISTRIBUTION WIDTH-CV 14.7 % (11.5-14.5)
[2021-10-21 08:46] VITALS: BP 100/64; PULSE 82; TEMP 97.7
[2021-10-21 08:49] LABS: HEMATOCRIT 24.5 % (42.0-52.0); HEMOGLOBIN 8.2 g/dl (13.5-18.0); MEAN CORPUSCULAR HEMOGLOBIN 29 pg (27.0-31.0)
[2021-10-21 08:50] LABS: PLATELET COUNT 10 K/mm3 (130-400)
[2021-10-21 08:58] LABS: BILIRUBIN,TOTAL 0.8 mg/dL (0.2-1.2); CALCIUM 9.1 mg/dL (8.4-10.2); CREATININE, serum 0.9 mg/dL (0.72-1.25); MAGNESIUM 1.7 mg/dL (1.6-2.6); POTASSIUM 4.1 mmol/L (3.5-4.5); TOTAL PROTEIN 6.4 gm/dL (6.2-8.1)
[2021-10-21 09:38] LABS: BAND 3 % (0-10); NEUTROPHILS 29 % (42.0-75.2)
[2021-10-21 09:39] LABS: PLATELET ESTIMATE DECREASED (NORMAL)
[2021-10-21 09:40] LABS: LYMPHOCYTE 57 % (20.0-51.0)
[2021-10-23 08:45] VITALS: BP 105/65; PULSE 84; TEMP 97.6
[2021-10-23 08:46] LABS: MEAN CELL VOLUME 86 fl (80.0-100.0); MEAN CORPUSCULAR HGB CONC 34 g/dl (33.0-37.0); MEAN PLATELET VOLUME 10.2 fl (7.4-10.4); RED BLOOD COUNT 2.68 M/mm3 (4.20-5.60)
[2021-10-23 08:51] LABS: HEMOGLOBIN 7.7 g/dl (13.5-18.0); MEAN CORPUSCULAR HEMOGLOBIN 29 pg (27.0-31.0)
[2021-10-23 08:52] LABS: PLATELET COUNT 7 K/mm3 (130-400)
[2021-10-23 09:10] LABS: BAND 2 % (0-10); LYMPHOCYTE 22 % (20.0-51.0); NEUTROPHILS 37 % (42.0-75.2)
[2021-10-23 09:11] LABS: ANISOCYTOSIS 1+; HYPOCHROMIA 1+; PLATELET ESTIMATE DECREASED (NORMAL)
--- NOTE | 2021-10-23 10:30 | NUR ---
PT MOVED TO [facility] 9 VIA W/C AFTER USING B/R, WAITING ON PRBC TO BE GIVEN TODAY, PREMEDS GIVEN ORDERED, WILL RETURN TOMORROW WHEN 1 UNIT OF PLATELETS ARE AVIALABLE
[2021-10-23 11:22] VITALS: BP 111/64; PULSE 79; TEMP 98
[2021-10-23 11:42] VITALS: BP 112/67; PULSE 76; TEMP 98.5
[2021-10-23 12:00] VITALS: BP 120/63; PULSE 76; TEMP 98.6
[2021-10-23 12:30] VITALS: BP 112/66; PULSE 71; TEMP 98.4
[2021-10-23 13:17] VITALS: BP 126/71; PULSE 73; TEMP 98.5
--- NOTE | 2021-10-23 13:30 | NUR ---
PORT FLUSHED PER PROTOCOL AFTER BLOOD TRANSFUSION AND LEFT IN, DC VIA W/C TO CAR, WILL RETURN TOMORROW
[2021-10-24 13:46] VITALS: BP 122/72; PULSE 80; TEMP 98.9
[2021-10-24 14:04] VITALS: BP 105/60; PULSE 77; TEMP 98.6
[2021-10-24 14:19] VITALS: BP 121/70; PULSE 76; TEMP 98.7
[2021-10-24 14:49] VITALS: BP 114/67; PULSE 76; TEMP 98.7
[2021-10-24 15:18] VITALS: BP 109/67; PULSE 76; TEMP 98.7
[2021-10-25 08:37] LABS: MEAN CELL VOLUME 88 fl (80.0-100.0); MEAN CORPUSCULAR HGB CONC 32 g/dl (33.0-37.0); MEAN PLATELET VOLUME 11.8 fl (7.4-10.4); RED BLOOD COUNT 2.63 M/mm3 (4.20-5.60)
[2021-10-25 08:42] VITALS: BP 114/69; PULSE 83; TEMP 98.2
[2021-10-25 08:47] LABS: HEMATOCRIT 23.2 % (42.0-52.0); HEMOGLOBIN 7.5 g/dl (13.5-18.0); MEAN CORPUSCULAR HEMOGLOBIN 29 pg (27.0-31.0); PLATELET COUNT 11 K/mm3 (130-400)
[2021-10-25 09:57] LABS: BASOPHIL 0 % (0-2); EOSINOPHIL 0 % (0-4); LYMPHOCYTE 104 % (20.0-51.0); METAMYELOCYTE 0 % (0-0); MYELOCYTE 0 % (0-0); NEUTROPHILS 70 % (42.0-75.2); NUCLEATED RED BLOOD CELL 0 (0-6); PLATELET ESTIMATE DECREASED (NORMAL)
[2021-10-25 09:58] LABS: ANISOCYTOSIS 1+; HYPOCHROMIA 1+
[2021-10-28 09:00] VITALS: BP 96/61; PULSE 75; TEMP 98.6
[2021-10-28 09:02] LABS: MEAN CELL VOLUME 87 fl (80.0-100.0); MEAN CORPUSCULAR HGB CONC 33 g/dl (33.0-37.0); MEAN PLATELET VOLUME 10.6 fl (7.4-10.4); RED BLOOD COUNT 2.54 M/mm3 (4.20-5.60)
[2021-10-28 09:03] LABS: ALBUMIN 2.9 gm/dL (3.4-4.8); BILIRUBIN,TOTAL 0.7 mg/dL (0.2-1.2); CALCIUM 9.1 mg/dL (8.4-10.2); CREATININE, serum 0.84 mg/dL (0.72-1.25); MAGNESIUM 1.8 mg/dL (1.6-2.6); POTASSIUM 4.1 mmol/L (3.5-4.5); TOTAL PROTEIN 6.1 gm/dL (6.2-8.1)
[2021-10-28 09:15] LABS: HEMATOCRIT 22.1 % (42.0-52.0); HEMOGLOBIN 7.3 g/dl (13.5-18.0); MEAN CORPUSCULAR HEMOGLOBIN 29 pg (27.0-31.0); PLATELET COUNT 9 K/mm3 (130-400)
[2021-10-28 10:39] VITALS: BP 115/70; PULSE 71; TEMP 98.2
[2021-10-28 10:54] VITALS: BP 120/60; PULSE 68; TEMP 98.2
[2021-10-28 10:54] LABS: BAND 6 % (0-10); NEUTROPHILS 37 % (42.0-75.2); PLATELET ESTIMATE DECREASED (NORMAL)
[2021-10-28 10:58] LABS: LYMPHOCYTE 37 % (20.0-51.0)
[2021-10-28 11:24] VITALS: BP 118/68; PULSE 66; TEMP 98.4
[2021-10-28 12:18] VITALS: BP 116/68; PULSE 66; TEMP 98.3
--- NOTE | 2021-10-28 14:20 | NUR ---
Additional blood work drawn from port and handed to laborer wrecking and salvaging to be sent to [facility] for further workup for T&C. Pt aware that he will recieve ordered PRBC when they are available from [facility]. He and daughter told they will be called when blood is available. Port flushed and left accessed.
[2021-10-29 14:14] VITALS: BP 119/88; PULSE 91; TEMP 97.8
[2021-10-29 14:21] VITALS: BP 110/63; PULSE 85; TEMP 97.8
[2021-10-29 14:39] VITALS: BP 119/63; PULSE 84; TEMP 98.3
[2021-10-29 14:55] VITALS: BP 120/73; PULSE 78; TEMP 98.4
[2021-10-29 15:25] VITALS: BP 117/68; PULSE 80; TEMP 98.6
[2021-10-29 16:12] VITALS: BP 116/66; PULSE 78; TEMP 98.3
[2021-10-30 09:10] LABS: MEAN CELL VOLUME 86 fl (80.0-100.0); MEAN CORPUSCULAR HGB CONC 34 g/dl (33.0-37.0); MEAN PLATELET VOLUME 9.8 fl (7.4-10.4); RED BLOOD COUNT 2.56 M/mm3 (4.20-5.60); REDCELL DISTRIBUTION WIDTH-CV 14.8 % (11.5-14.5)
[2021-10-30 09:12] VITALS: BP 111/66; PULSE 79; TEMP 98.4
[2021-10-30 09:13] LABS: HEMATOCRIT 22.1 % (42.0-52.0); HEMOGLOBIN 7.4 g/dl (13.5-18.0); MEAN CORPUSCULAR HEMOGLOBIN 29 pg (27-31)
[2021-10-30 09:18] LABS: PLATELET COUNT 12 K/mm3 (130-400)
[2021-10-30 10:08] LABS: BAND 3 % (0-10); NEUTROPHILS 31 % (42.0-75.2); PLATELET ESTIMATE DECREASED (NORMAL)
[2021-10-30 10:09] LABS: LYMPHOCYTE 54 % (20.0-51.0)
[2021-11-01 08:26] LABS: MEAN CELL VOLUME 87 fl (80.0-100.0); MEAN CORPUSCULAR HGB CONC 33 g/dl (33.0-37.0); MEAN PLATELET VOLUME 10.4 fl (7.4-10.4); RED BLOOD COUNT 2.73 M/mm3 (4.20-5.60); REDCELL DISTRIBUTION WIDTH-CV 15.1 % (11.5-14.5)
[2021-11-01 08:31] VITALS: BP 126/71; PULSE 83; TEMP 97.8
[2021-11-01 08:45] LABS: HEMATOCRIT 23.8 % (42.0-52.0); HEMOGLOBIN 7.9 g/dl (13.5-18.0); MEAN CORPUSCULAR HEMOGLOBIN 29 pg (27-31); PLATELET COUNT 11 K/mm3 (130-400)
--- NOTE | 2021-11-01 09:30 | NUR ---
[facility] RN returns call stating that no transfusions will be ordered for pt today. Pt is informed and expresses understanding. Port DC'd after heparinizing per orders. Pt assisted out to wheelchair to meet his daughter.
[2021-11-01 09:54] LABS: ANISOCYTOSIS 1+; PLATELET ESTIMATE DECREASED (NORMAL)
[2021-11-01 11:26] LABS: BAND 1 % (0-10); LYMPHOCYTE 28 % (20.0-51.0); NEUTROPHILS 30 % (42.0-75.2)
[2021-11-01 11:27] LABS: METAMYELOCYTE 2 % (0-0)
[2021-11-04 08:33] VITALS: BP 104/62; PULSE 78; TEMP 98.1
[2021-11-04 08:49] LABS: BILIRUBIN,TOTAL 0.5 mg/dL (0.2-1.2); CALCIUM 9.1 mg/dL (8.4-10.2); CREATININE, serum 0.91 mg/dL (0.72-1.25); POTASSIUM 3.9 mmol/L (3.5-4.5); TOTAL PROTEIN 6.2 gm/dL (6.2-8.1)
[2021-11-04 08:50] LABS: MEAN CELL VOLUME 85 fl (80.0-100.0); MEAN CORPUSCULAR HGB CONC 34 g/dl (33.0-37.0); MEAN PLATELET VOLUME 10.4 fl (7.4-10.4); RED BLOOD COUNT 2.73 M/mm3 (4.20-5.60)
[2021-11-04 08:58] LABS: HEMATOCRIT 23.2 % (42.0-52.0); HEMOGLOBIN 7.9 g/dl (13.5-18.0); MEAN CORPUSCULAR HEMOGLOBIN 29 pg (27-31)
[2021-11-04 08:59] LABS: PLATELET COUNT 13 K/mm3 (130-400)
[2021-11-04 09:49] LABS: BAND 6 % (0-10); LYMPHOCYTE 21 % (20.0-51.0); METAMYELOCYTE 1 % (0-0); NEUTROPHILS 33 % (42.0-75.2); PLATELET ESTIMATE DECREASED (NORMAL)
[2021-11-06] VITALS (10 sets, daily range): BP systolic 98–127; BP diastolic 50–70; PULSE 72–78; TEMP 97.5–98.4
[2021-11-06 08:43] LABS: MEAN CELL VOLUME 87 fl (80.0-100.0); MEAN CORPUSCULAR HGB CONC 33 g/dl (33.0-37.0); MEAN PLATELET VOLUME 13.2 fl (7.4-10.4); RED BLOOD COUNT 2.34 M/mm3 (4.20-5.60); REDCELL DISTRIBUTION WIDTH-CV 15.1 % (11.5-14.5)
[2021-11-06 08:49] LABS: HEMATOCRIT 20.4 % (42.0-52.0); HEMOGLOBIN 6.8 g/dl (13.5-18.0); MEAN CORPUSCULAR HEMOGLOBIN 29 pg (27-31); PLATELET COUNT 14 K/mm3 (130-400)
[2021-11-06 09:32] LABS: ANISOCYTOSIS 1+; BAND 6 % (0-10); LYMPHOCYTE 46 % (20.0-51.0); NEUTROPHILS 25 % (42.0-75.2); PLATELET ESTIMATE DECREASED (NORMAL)
[2021-11-08 08:44] LABS: MEAN CELL VOLUME 85 fl (80.0-100.0); MEAN CORPUSCULAR HGB CONC 34 g/dl (33.0-37.0); MEAN PLATELET VOLUME 9.1 fl (7.4-10.4); RED BLOOD COUNT 2.92 M/mm3 (4.20-5.60); REDCELL DISTRIBUTION WIDTH-CV 15.9 % (11.5-14.5)
[2021-11-08 08:53] LABS: HEMATOCRIT 24.9 % (42.0-52.0); HEMOGLOBIN 8.5 g/dl (13.5-18.0); MEAN CORPUSCULAR HEMOGLOBIN 29 pg (27-31)
[2021-11-08 08:54] LABS: PLATELET COUNT 14 K/mm3 (130-400)
[2021-11-08 09:00] VITALS: BP 134/65; PULSE 72; TEMP 98
[2021-11-08 10:13] LABS: ANISOCYTOSIS 1+; LYMPHOCYTE 32 % (20.0-51.0); NEUTROPHILS 32 % (42.0-75.2); PLATELET ESTIMATE DECREASED (NORMAL)
[2021-11-11 08:43] VITALS: BP 109/66; PULSE 74; TEMP 97.9
[2021-11-11 09:04] LABS: MEAN CELL VOLUME 86 fl (80.0-100.0); MEAN CORPUSCULAR HGB CONC 33 g/dl (33.0-37.0); MEAN PLATELET VOLUME 10.8 fl (7.4-10.4); RED BLOOD COUNT 2.59 M/mm3 (4.20-5.60)
[2021-11-11 09:09] LABS: HEMATOCRIT 22.3 % (42.0-52.0); HEMOGLOBIN 7.4 g/dl (13.5-18.0); MEAN CORPUSCULAR HEMOGLOBIN 29 pg (27-31)
[2021-11-11 09:10] LABS: PLATELET COUNT 18 K/mm3 (130-400)
[2021-11-11 09:28] LABS: ALBUMIN 2.8 gm/dL (3.4-4.8); BILIRUBIN,TOTAL 0.4 mg/dL (0.2-1.2); CALCIUM 9.1 mg/dL (8.4-10.2); CREATININE, serum 0.81 mg/dL (0.72-1.25); MAGNESIUM 1.7 mg/dL (1.6-2.6); POTASSIUM 3.8 mmol/L (3.5-4.5); TOTAL PROTEIN 5.8 gm/dL (6.2-8.1)
[2021-11-11 09:45] LABS: PLATELET ESTIMATE DECREASED (NORMAL)
[2021-11-11 09:54] LABS: BAND 9 % (0-10)
[2021-11-11 09:56] LABS: LYMPHOCYTE 18 % (20.0-51.0)
[2021-11-11 09:57] LABS: NEUTROPHILS 35 % (42.0-75.2)
[2021-11-13 08:52] LABS: MEAN CELL VOLUME 86 fl (80.0-100.0); MEAN CORPUSCULAR HGB CONC 34 g/dl (33.0-37.0); MEAN PLATELET VOLUME 10.5 fl (7.4-10.4); RED BLOOD COUNT 2.59 M/mm3 (4.20-5.60); REDCELL DISTRIBUTION WIDTH-CV 15.9 % (11.5-14.5)
[2021-11-13 09:20] LABS: HEMATOCRIT 22.3 % (42.0-52.0); HEMOGLOBIN 7.5 g/dl (13.5-18.0); MEAN CORPUSCULAR HEMOGLOBIN 29 pg (27-31); PLATELET COUNT 20 K/mm3 (130-400)
[2021-11-13 09:25] VITALS: BP 112/68; PULSE 80; TEMP 98.1
[2021-11-13 11:00] LABS: BAND 8 % (0-10); NEUTROPHILS 27 % (42.0-75.2)
[2021-11-13 11:02] LABS: PLATELET ESTIMATE DECREASED (NORMAL)
[2021-11-13 11:03] LABS: ANISOCYTOSIS 1+; LYMPHOCYTE 44 % (20.0-51.0)
[~2021-11-15] VITALS: Ht 172.7 cm; Wt 80.3 kg
[~2021-11-15] MED LIST changes: +HYDROXYURE500 MG/CAP PO
[2021-11-15 08:29] LABS: MEAN CELL VOLUME 86 fl (80.0-100.0); MEAN CORPUSCULAR HGB CONC 33 g/dl (33.0-37.0); MEAN PLATELET VOLUME 11.2 fl (7.4-10.4); RED BLOOD COUNT 2.43 M/mm3 (4.20-5.60); REDCELL DISTRIBUTION WIDTH-CV 15.9 % (11.5-14.5)
[2021-11-15 08:30] VITALS: BP 109/64; PULSE 73; TEMP 98.5
[2021-11-15 08:36] LABS: HEMOGLOBIN 6.9 g/dl (13.5-18.0); MEAN CORPUSCULAR HEMOGLOBIN 28 pg (27-31); PLATELET COUNT 21 K/mm3 (130-400)
[2021-11-15 11:13] LABS: BAND 1 % (0-10); LYMPHOCYTE 63 % (20.0-51.0); NEUTROPHILS 24 % (42.0-75.2)
[2021-11-15 11:14] LABS: HYPOCHROMIA 1+
[2021-11-15 11:15] LABS: ANISOCYTOSIS 1+; PLATELET ESTIMATE DECREASED (NORMAL)
[2021-11-16] VITALS (9 sets, daily range): BP systolic 132–148; BP diastolic 64–80; PULSE 66–72; TEMP 97.8–98.5
--- NOTE | 2021-11-16 14:27 | NUR ---
BLOOD TRANSFUSION STARTED. VSS.
--- NOTE | 2021-11-16 18:31 | NUR ---
2 units of blood transfused. VSS. Patient A&O. Arnaldo cath dc'd. No signs of complications. Patient transported from building via wheelchair. Family friend transporting home.
== END | disposition home or self-care (01) ==
LOC: EUO
PROVIDERS: Internal Medicine
DX: D46.22 Refractory anemia with excess of blasts 2 (principal); D46.Z Other myelodysplastic syndromes; D69.6 Thrombocytopenia, unspecified
CPT/HCPCS: J1644; J7050; P9016; P9035; P9040

== ENCOUNTER 2021-11-16 13:01 | Outpatient (RCR) | payer MEDICARE, BC ==
[~2021-11-16 13:01] MED LIST changes: -HYDROXYURE500 MG/CAP PO
[2021-11-22] MEDS ORDERED: HYDROXYURE500 MG/CAP PO (12:27)
== END 2021-11-27 10:24 | disposition home or self-care (01) ==
LOC: EUO 13:01
DX: D46.22 Refractory anemia with excess of blasts 2 (principal); D46.Z Other myelodysplastic syndromes; Z95.9 Presence of cardiac and vascular implant and graft, unspecified
CPT/HCPCS: J1644; J7050; P9040

== ENCOUNTER 2021-12-16 08:30 | Outpatient (RCR) | payer MEDICARE, BC ==
[2021-11-18 08:50] LABS: MEAN CELL VOLUME 83 fl (80.0-100.0); MEAN CORPUSCULAR HGB CONC 34 g/dl (33.0-37.0); MEAN PLATELET VOLUME 11.3 fl (7.4-10.4); RED BLOOD COUNT 2.91 M/mm3 (4.20-5.60); REDCELL DISTRIBUTION WIDTH-CV 17.4 % (11.5-14.5)
[2021-11-18 08:55] LABS: HEMATOCRIT 24.1 % (42.0-52.0); HEMOGLOBIN 8.1 g/dl (13.5-18.0); MEAN CORPUSCULAR HEMOGLOBIN 28 pg (27-31)
[2021-11-18 08:58] LABS: PLATELET COUNT 25 K/mm3 (130-400)
[2021-11-18 09:23] VITALS: BP 114/67; PULSE 71; TEMP 98.3
[2021-11-18 09:57] LABS: BAND 3 % (0-10); BASOPHIL 1 % (0-2); MYELOCYTE 1 % (0-0); NEUTROPHILS 20 % (42.0-75.2)
[2021-11-18 10:07] LABS: LYMPHOCYTE 41 % (20.0-51.0); PLATELET ESTIMATE DECREASED (NORMAL)
[2021-11-18 10:08] LABS: ANISOCYTOSIS 2+; MICROCYTOSIS 2+
[2021-11-20 08:49] LABS: MEAN CELL VOLUME 84 fl (80.0-100.0); MEAN CORPUSCULAR HGB CONC 34 g/dl (33.0-37.0); MEAN PLATELET VOLUME 11.2 fl (7.4-10.4); RED BLOOD COUNT 2.74 M/mm3 (4.20-5.60)
[2021-11-20 08:50] VITALS: BP 127/70; PULSE 70; TEMP 98
[2021-11-20 08:52] LABS: HEMATOCRIT 22.9 % (42.0-52.0); HEMOGLOBIN 7.7 g/dl (13.5-18.0); MEAN CORPUSCULAR HEMOGLOBIN 28 pg (27-31)
[2021-11-20 08:56] LABS: PLATELET COUNT 27 K/mm3 (130-400)
[2021-11-20 09:03] LABS: ALBUMIN 2.9 gm/dL (3.4-4.8); BILIRUBIN,TOTAL 0.5 mg/dL (0.2-1.2); CREATININE, serum 0.89 mg/dL (0.72-1.25); MAGNESIUM 1.7 mg/dL (1.6-2.6); POTASSIUM 3.8 mmol/L (3.5-4.5); TOTAL PROTEIN 5.9 gm/dL (6.2-8.1)
[2021-11-20 10:03] LABS: BAND 3 % (0-10); LYMPHOCYTE 50 % (20.0-51.0); NEUTROPHILS 22 % (42.0-75.2)
[2021-11-20 10:07] LABS: PLATELET ESTIMATE DECREASED (NORMAL)
[2021-11-20 10:08] LABS: ANISOCYTOSIS 1+
[2021-11-22 08:25] VITALS: BP 165/85; PULSE 72; TEMP 97.6
[2021-11-22 08:47] LABS: MEAN CELL VOLUME 86 fl (80.0-100.0); MEAN CORPUSCULAR HGB CONC 32 g/dl (33.0-37.0); MEAN PLATELET VOLUME 11.1 fl (7.4-10.4); RED BLOOD COUNT 2.73 M/mm3 (4.20-5.60); REDCELL DISTRIBUTION WIDTH-CV 16.7 % (11.5-14.5)
[2021-11-22 08:59] LABS: HEMATOCRIT 23.5 % (42.0-52.0); HEMOGLOBIN 7.5 g/dl (13.5-18.0); MEAN CORPUSCULAR HEMOGLOBIN 27 pg (27-31); PLATELET COUNT 31 K/mm3 (130-400)
[2021-11-22 10:09] LABS: BAND 10 % (0-10); LYMPHOCYTE 56 % (20.0-51.0); MYELOCYTE 0 % (0-0); OVALOCYTES 1+; PLATELET ESTIMATE DECREASED (NORMAL); SCHISTOCYTES 1+
[2021-11-22 10:10] LABS: NEUTROPHILS 19 % (42.0-75.2)
[2021-11-25 08:56] VITALS: BP 143/72; PULSE 71; TEMP 97.5
[2021-11-25 08:58] LABS: MEAN CELL VOLUME 87 fl (80.0-100.0); MEAN CORPUSCULAR HGB CONC 32 g/dl (33.0-37.0); MEAN PLATELET VOLUME 11.8 fl (7.4-10.4); RED BLOOD COUNT 2.44 M/mm3 (4.20-5.60); REDCELL DISTRIBUTION WIDTH-CV 16.6 % (11.5-14.5)
[2021-11-25 09:19] LABS: BILIRUBIN,TOTAL 0.5 mg/dL (0.2-1.2); CALCIUM 8.9 mg/dL (8.4-10.2); CREATININE, serum 0.91 mg/dL (0.72-1.25); MAGNESIUM 1.7 mg/dL (1.6-2.6); POTASSIUM 3.8 mmol/L (3.5-4.5); TOTAL PROTEIN 5.7 gm/dL (6.2-8.1)
[2021-11-25 09:27] LABS: HEMATOCRIT 21.3 % (42.0-52.0); HEMOGLOBIN 6.9 g/dl (13.5-18.0); MEAN CORPUSCULAR HEMOGLOBIN 28 pg (27-31); PLATELET COUNT 32 K/mm3 (130-400)
[2021-11-25 10:31] LABS: BAND 6 % (0-10); METAMYELOCYTE 1 % (0-0); MYELOCYTE 1 % (0-0); NEUTROPHILS 13 % (42.0-75.2)
[2021-11-25 10:32] LABS: LYMPHOCYTE 58 % (20.0-51.0)
[2021-11-25 10:33] LABS: PLATELET ESTIMATE DECREASED (NORMAL)
[2021-11-26 07:32] LABS: PATHOLOGY DIFF REVIEW OK +
[2021-11-27 08:36] VITALS: BP 101/62; PULSE 75; TEMP 97.5
[2021-11-27 08:54] LABS: MEAN CELL VOLUME 87 fl (80.0-100.0); MEAN CORPUSCULAR HGB CONC 32 g/dl (33.0-37.0); MEAN PLATELET VOLUME 11.2 fl (7.4-10.4); RED BLOOD COUNT 2.36 M/mm3 (4.20-5.60); REDCELL DISTRIBUTION WIDTH-CV 16.9 % (11.5-14.5)
[2021-11-27 08:55] LABS: HEMATOCRIT 20.5 % (42.0-52.0); MEAN CORPUSCULAR HEMOGLOBIN 28 pg (27-31)
[2021-11-27 08:57] LABS: HEMOGLOBIN 6.6 g/dl (13.5-18.0); PLATELET COUNT 37 K/mm3 (130-400)
--- NOTE | 2021-11-27 09:09 | NUR ---
0856was notifed by Carmita in lab, patient's platelets 37, HGB 6.6, WBC 52.[address] Riggins, mary Ball RN of those resluts.
[2021-11-27 09:46] LABS: EOSINOPHIL 1 % (0-4); NEUTROPHILS 23 % (42.0-75.2)
[2021-11-27 09:47] LABS: LYMPHOCYTE 57 % (20.0-51.0); PLATELET ESTIMATE DECREASED (NORMAL)
[2021-11-27 09:48] LABS: ANISOCYTOSIS 1+; MICROCYTOSIS 1+
--- NOTE | 2021-11-27 11:00 | NUR ---
Notified by Michelle,blood bank tech that [facility] will not release units at this time for pt.Per michelle, she will call office and report to office nurse.
[2021-11-29 08:28] LABS: HEMATOCRIT 19.2 % (42.0-52.0); MEAN CELL VOLUME 86 fl (80.0-100.0); MEAN CORPUSCULAR HEMOGLOBIN 28 pg (27-31); MEAN CORPUSCULAR HGB CONC 32 g/dl (33.0-37.0); MEAN PLATELET VOLUME 11.6 fl (7.4-10.4); RED BLOOD COUNT 2.23 M/mm3 (4.20-5.60); REDCELL DISTRIBUTION WIDTH-CV 16.7 % (11.5-14.5)
[2021-11-29 08:29] LABS: HEMOGLOBIN 6.2 g/dl (13.5-18.0); PLATELET COUNT 42 K/mm3 (130-400)
[2021-11-29 08:31] VITALS: BP 120/68; PULSE 77; TEMP 97.6
[2021-11-29 09:23] LABS: ANISOCYTOSIS 1+; BAND 4 % (0-10); EOSINOPHIL 1 % (0-4); MYELOCYTE 1 % (0-0); NEUTROPHILS 14 % (42.0-75.2); PLATELET ESTIMATE DECREASED (NORMAL)
--- NOTE | 2021-11-29 09:24 | NUR ---
Per Blood Bank, [facility] is still on critical release for blood products. Ordered units of PRBC will be ordered from [facility]. Pt is understandable that they could deny order based on their supply. Pt leaves dept to go home, nursing staff will call him with update on availability of blood products. Port left accessed, pt will return later today or tomorrow for DC depending on blood availability.
[2021-11-29 09:25] LABS: LYMPHOCYTE 49 % (20.0-51.0)
[2021-11-30 08:15] VITALS: BP 104/62; PULSE 92; TEMP 97.7
[2021-11-30 09:24] VITALS: BP 118/63; PULSE 83; TEMP 97.6
[2021-11-30 09:39] VITALS: BP 139/73; PULSE 84; TEMP 9737
[2021-11-30 10:09] VITALS: BP 135/68; PULSE 85; TEMP 97.8
[2021-11-30 10:55] VITALS: BP 146/75; PULSE 89; TEMP 98.1
[2021-12-02 08:41] VITALS: BP 129/57; PULSE 73; TEMP 97.9
[2021-12-02 09:01] LABS: MEAN CELL VOLUME 88 fl (80.0-100.0); MEAN CORPUSCULAR HGB CONC 32 g/dl (33.0-37.0); MEAN PLATELET VOLUME 10.9 fl (7.4-10.4); RED BLOOD COUNT 2.42 M/mm3 (4.20-5.60)
[2021-12-02 09:07] LABS: HEMATOCRIT 21.3 % (42.0-52.0); MEAN CORPUSCULAR HEMOGLOBIN 28 pg (27-31)
[2021-12-02 09:08] LABS: HEMOGLOBIN 6.7 g/dl (13.5-18.0); PLATELET COUNT 40 K/mm3 (130-400)
[2021-12-02 09:32] LABS: BAND 1 % (0-10); BASOPHIL 1 % (0-2); NEUTROPHILS 22 % (42.0-75.2)
[2021-12-02 09:33] LABS: LYMPHOCYTE 72 % (20.0-51.0)
[2021-12-02 09:34] LABS: HYPOCHROMIA 1+; PLATELET ESTIMATE DECREASED (NORMAL)
[2021-12-02 09:35] LABS: ANISOCYTOSIS 1+
[2021-12-02 12:12] VITALS: BP 124/74; PULSE 73; TEMP 98
[2021-12-02 12:30] VITALS: BP 127/68; PULSE 73; TEMP 98.1
[2021-12-02 12:45] VITALS: BP 127/68; PULSE 71; TEMP 98
[2021-12-02 13:15] VITALS: BP 145/69; PULSE 75; TEMP 98.5
[2021-12-02 13:49] VITALS: BP 127/70; PULSE 73; TEMP 98.2
[2021-12-04 09:01] VITALS: BP 122/72; PULSE 79; TEMP 97.8
[2021-12-04 09:15] LABS: MEAN CELL VOLUME 88 fl (80.0-100.0); MEAN CORPUSCULAR HGB CONC 33 g/dl (33.0-37.0); MEAN PLATELET VOLUME 11.9 fl (7.4-10.4); RED BLOOD COUNT 2.49 M/mm3 (4.20-5.60)
[2021-12-04 09:43] LABS: HEMATOCRIT 21.9 % (42.0-52.0); HEMOGLOBIN 7.2 g/dl (13.5-18.0); MEAN CORPUSCULAR HEMOGLOBIN 29 pg (27-31)
[2021-12-04 09:44] LABS: PLATELET COUNT 39 K/mm3 (130-400)
[2021-12-04 10:21] LABS: NEUTROPHILS 19 % (42.0-75.2)
[2021-12-04 10:22] LABS: ANISOCYTOSIS 1+; LYMPHOCYTE 70 % (20.0-51.0); PLATELET ESTIMATE DECREASED (NORMAL)
[2021-12-06 08:38] LABS: MEAN CELL VOLUME 89 fl (80.0-100.0); MEAN CORPUSCULAR HGB CONC 32 g/dl (33.0-37.0); MEAN PLATELET VOLUME 10.8 fl (7.4-10.4); RED BLOOD COUNT 2.49 M/mm3 (4.20-5.60); REDCELL DISTRIBUTION WIDTH-CV 17.3 % (11.5-14.5)
[2021-12-06 08:54] VITALS: BP 125/71; PULSE 76; TEMP 97.9
[2021-12-06 09:10] LABS: BAND 3 % (0-10); PLATELET ESTIMATE DECREASED (NORMAL)
[2021-12-06 09:13] LABS: HEMATOCRIT 22.2 % (42.0-52.0); HEMOGLOBIN 7.2 g/dl (13.5-18.0); MEAN CORPUSCULAR HEMOGLOBIN 29 pg (27-31); PLATELET COUNT 41 K/mm3 (130-400)
[2021-12-06 09:43] LABS: NEUTROPHILS 21 % (42.0-75.2)
[2021-12-06 09:44] LABS: EOSINOPHIL 1 % (0-4); LYMPHOCYTE 3 % (20.0-51.0); METAMYELOCYTE 4 % (0-0); MYELOCYTE 3 % (0-0)
[2021-12-09 08:48] LABS: MEAN CELL VOLUME 88 fl (80.0-100.0); MEAN CORPUSCULAR HGB CONC 33 g/dl (33.0-37.0); MEAN PLATELET VOLUME 11.4 fl (7.4-10.4); RED BLOOD COUNT 2.37 M/mm3 (4.20-5.60); REDCELL DISTRIBUTION WIDTH-CV 17.2 % (11.5-14.5)
[2021-12-09 08:50] LABS: HEMATOCRIT 20.8 % (42.0-52.0); HEMOGLOBIN 6.8 g/dl (13.5-18.0); MEAN CORPUSCULAR HEMOGLOBIN 29 pg (27-31); PLATELET COUNT 41 K/mm3 (130-400)
[2021-12-09 09:03] LABS: ALBUMIN 3.4 gm/dL (3.4-4.8); BILIRUBIN,TOTAL 0.3 mg/dL (0.2-1.2); CALCIUM 9.2 mg/dL (8.4-10.2); CREATININE, serum 0.79 mg/dL (0.72-1.25); MAGNESIUM 1.7 mg/dL (1.6-2.6)
[2021-12-09 09:12] VITALS: BP 104/64; PULSE 76; TEMP 98.1
[2021-12-09 11:46] LABS: BAND 3 % (0-10); BASOPHIL 1 % (0-2); NEUTROPHILS 17 % (42.0-75.2)
[2021-12-09 11:48] LABS: METAMYELOCYTE 2 % (0-0)
[2021-12-09 11:50] LABS: LYMPHOCYTE 25 % (20.0-51.0)
[2021-12-09 11:51] LABS: PLATELET ESTIMATE DECREASED (NORMAL)
[2021-12-09 13:42] LABS: PATHOLOGY DIFF REVIEW OK
[2021-12-10 13:32] VITALS: BP 119/70; PULSE 73; TEMP 98.2
[2021-12-10 14:22] VITALS: BP 130/73; PULSE 74; TEMP 98
[2021-12-10 14:37] VITALS: BP 134/81; PULSE 72; TEMP 98
[2021-12-10 15:07] VITALS: BP 122/74; PULSE 72; TEMP 98.1
[2021-12-10 16:07] VITALS: BP 131/80; PULSE 73; TEMP 98.2
[2021-12-10 16:29] VITALS: BP 129/73; PULSE 72; TEMP 98.1
[2021-12-11 09:10] LABS: MEAN CELL VOLUME 89 fl (80.0-100.0); MEAN CORPUSCULAR HGB CONC 32 g/dl (33.0-37.0); MEAN PLATELET VOLUME 11.3 fl (7.4-10.4); RED BLOOD COUNT 2.43 M/mm3 (4.20-5.60)
[2021-12-11 09:40] VITALS: BP 131/71; PULSE 74; TEMP 98.1
[2021-12-11 09:42] LABS: HEMATOCRIT 21.5 % (42.0-52.0); HEMOGLOBIN 6.9 g/dl (13.5-18.0); MEAN CORPUSCULAR HEMOGLOBIN 28 pg (27-31); PLATELET COUNT 36 K/mm3 (130-400)
[2021-12-11 10:59] LABS: BAND 1 % (0-10); BASOPHIL 3 % (0-2); EOSINOPHIL 3 % (0-4); LYMPHOCYTE 4 % (20.0-51.0); METAMYELOCYTE 1 % (0-0); NEUTROPHILS 13 % (42.0-75.2)
[2021-12-11 11:00] LABS: ANISOCYTOSIS 1+; PLATELET ESTIMATE DECREASED (NORMAL)
[2021-12-11 11:40] VITALS: BP 122/70; PULSE 73; TEMP 98.2
[2021-12-11 11:59] VITALS: BP 119/71; PULSE 70; TEMP 97.8
[2021-12-11 12:14] VITALS: BP 136/75; PULSE 68; TEMP 97.8
[2021-12-11 12:44] VITALS: BP 145/79; PULSE 70; TEMP 98.4
[2021-12-11 13:15] VITALS: BP 134/74; PULSE 73; TEMP 98.2
[2021-12-13 08:37] LABS: MEAN CORPUSCULAR HGB CONC 33 g/dl (33.0-37.0); MEAN PLATELET VOLUME 11.2 fl (7.4-10.4); RED BLOOD COUNT 2.63 M/mm3 (4.20-5.60); REDCELL DISTRIBUTION WIDTH-CV 16.8 % (11.5-14.5)
[2021-12-13 08:40] VITALS: BP 101/65; PULSE 69; TEMP 98.2
[2021-12-13 08:43] LABS: HEMATOCRIT 22.2 % (42.0-52.0); HEMOGLOBIN 7.3 g/dl (13.5-18.0); MEAN CELL VOLUME 84 fl (80.0-100.0); MEAN CORPUSCULAR HEMOGLOBIN 28 pg (27-31); PLATELET COUNT 36 K/mm3 (130-400)
[2021-12-13 09:46] LABS: BAND 1 % (0-10); METAMYELOCYTE 2 % (0-0); NEUTROPHILS 11 % (42.0-75.2); PLATELET ESTIMATE DECREASED (NORMAL)
[2021-12-16] VITALS (10 sets, daily range): BP systolic 124–152; BP diastolic 69–76; PULSE 69–74; TEMP 97.5–98.7
[~2021-12-16] VITALS: Ht 172.7 cm; Wt 82.2 kg
[~2021-12-16 08:30] MED LIST changes: +HYDROXYURE500 MG/CAP PO
[2021-12-16 08:38] LABS: HEMATOCRIT 20.7 % (42.0-52.0); MEAN CELL VOLUME 85 fl (80.0-100.0); MEAN CORPUSCULAR HEMOGLOBIN 28 pg (27-31); MEAN CORPUSCULAR HGB CONC 33 g/dl (33.0-37.0); MEAN PLATELET VOLUME 11.5 fl (7.4-10.4); RED BLOOD COUNT 2.43 M/mm3 (4.20-5.60); REDCELL DISTRIBUTION WIDTH-CV 16.8 % (11.5-14.5)
[2021-12-16 08:40] LABS: HEMOGLOBIN 6.8 g/dl (13.5-18.0); PLATELET COUNT 34 K/mm3 (130-400)
[2021-12-16 08:50] LABS: ALBUMIN 3.2 gm/dL (3.4-4.8); BILIRUBIN,TOTAL 0.3 mg/dL (0.2-1.2); CALCIUM 9.1 mg/dL (8.4-10.2); CREATININE, serum 0.78 mg/dL (0.72-1.25); MAGNESIUM 1.6 mg/dL (1.6-2.6); POTASSIUM 3.9 mmol/L (3.5-4.5); TOTAL PROTEIN 5.7 gm/dL (6.2-8.1)
[2021-12-16 09:56] LABS: BAND 3 % (0-10); EOSINOPHIL 1 % (0-4); METAMYELOCYTE 1 % (0-0); NEUTROPHILS 7 % (42.0-75.2); PLATELET ESTIMATE DECREASED (NORMAL)
[2021-12-16 09:57] LABS: ANISOCYTOSIS 1+
[2021-12-16 10:00] LABS: LYMPHOCYTE 7 % (20.0-51.0)
[2022-01-09] MEDS ORDERED: HYDROXYURE500 MG/CAP PO (08:53)
== END 2021-12-16 18:00 | disposition home or self-care (01) ==
LOC: EUO 08:30
PROVIDERS: Internal Medicine
DX: D53.9 Nutritional anemia, unspecified (principal); D46.22 Refractory anemia with excess of blasts 2; D46.Z Other myelodysplastic syndromes; D69.6 Thrombocytopenia, unspecified; D46.9 Myelodysplastic syndrome, unspecified
CPT/HCPCS: J1644; J7050; P9016

== ENCOUNTER → 2022-01-13 | Outpatient (RCR) | payer MEDICARE, BC ==
[2021-12-18 08:53] LABS: MEAN CELL VOLUME 85 fl (80.0-100.0); MEAN CORPUSCULAR HGB CONC 34 g/dl (33.0-37.0); MEAN PLATELET VOLUME 9.7 fl (7.4-10.4); RED BLOOD COUNT 2.93 M/mm3 (4.20-5.60); REDCELL DISTRIBUTION WIDTH-CV 16.1 % (11.5-14.5)
[2021-12-18 08:57] LABS: HEMATOCRIT 24.9 % (42.0-52.0); HEMOGLOBIN 8.4 g/dl (13.5-18.0); MEAN CORPUSCULAR HEMOGLOBIN 29 pg (27-31); PLATELET COUNT 24 K/mm3 (130-400)
[2021-12-18 09:10] LABS: ALBUMIN 3.1 gm/dL (3.4-4.8); BILIRUBIN,TOTAL 0.4 mg/dL (0.2-1.2); CREATININE, serum 0.74 mg/dL (0.72-1.25); MAGNESIUM 1.5 mg/dL (1.6-2.6); POTASSIUM 3.9 mmol/L (3.5-4.5); TOTAL PROTEIN 5.8 gm/dL (6.2-8.1)
[2021-12-18 09:33] VITALS: BP 146/74; PULSE 84; TEMP 99.5
[2021-12-18 09:38] LABS: BAND 1 % (0-10); NEUTROPHILS 11 % (42.0-75.2)
[2021-12-18 09:48] LABS: HYPOCHROMIA 1+; PLATELET ESTIMATE DECREASED (NORMAL)
[2021-12-18 09:53] LABS: LYMPHOCYTE 14 % (20.0-51.0)
[2021-12-20 08:18] VITALS: BP 158/74; PULSE 103; TEMP 99
[2021-12-20 08:34] LABS: MEAN CELL VOLUME 86 fl (80.0-100.0); MEAN CORPUSCULAR HGB CONC 33 g/dl (33.0-37.0); MEAN PLATELET VOLUME 11.3 fl (7.4-10.4); RED BLOOD COUNT 2.65 M/mm3 (4.20-5.60)
[2021-12-20 08:35] LABS: HEMATOCRIT 22.7 % (42.0-52.0); HEMOGLOBIN 7.5 g/dl (13.5-18.0); MEAN CORPUSCULAR HEMOGLOBIN 28 pg (27-31)
[2021-12-20 08:37] LABS: PLATELET COUNT 33 K/mm3 (130-400)
[2021-12-20 09:13] LABS: BAND 4 % (0-10); BASOPHIL 1 % (0-2); METAMYELOCYTE 1 % (0-0); MYELOCYTE 1 % (0-0); NEUTROPHILS 8 % (42.0-75.2); PLATELET ESTIMATE DECREASED (NORMAL)
[2021-12-23] VITALS (10 sets, daily range): BP systolic 112–155; BP diastolic 64–81; PULSE 70–84; TEMP 97.5–98.5
[2021-12-23 09:02] LABS: ALBUMIN 2.6 gm/dL (3.4-4.8); BILIRUBIN,TOTAL 0.6 mg/dL (0.2-1.2); CREATININE, serum 0.84 mg/dL (0.72-1.25); MAGNESIUM 1.7 mg/dL (1.6-2.6); POTASSIUM 3.8 mmol/L (3.5-4.5); TOTAL PROTEIN 5.5 gm/dL (6.2-8.1)
[2021-12-23 09:22] LABS: HEMATOCRIT 18.9 % (42.0-52.0); HEMOGLOBIN 6.2 g/dl (13.5-18.0); MEAN CELL VOLUME 88 fl (80.0-100.0); MEAN CORPUSCULAR HEMOGLOBIN 29 pg (27-31); MEAN CORPUSCULAR HGB CONC 33 g/dl (33.0-37.0); MEAN PLATELET VOLUME 11.6 fl (7.4-10.4); PLATELET COUNT 25 K/mm3 (130-400); RED BLOOD COUNT 2.14 M/mm3 (4.20-5.60); REDCELL DISTRIBUTION WIDTH-CV 17.4 % (11.5-14.5)
[2021-12-23 10:02] LABS: BAND 1 % (0-10); LYMPHOCYTE 30 % (20.0-51.0); NEUTROPHILS 7 % (42.0-75.2)
[2021-12-23 10:04] LABS: PLATELET ESTIMATE DECREASED (NORMAL)
[2021-12-25 08:46] LABS: MEAN CELL VOLUME 87 fl (80.0-100.0); MEAN CORPUSCULAR HGB CONC 33 g/dl (33.0-37.0); MEAN PLATELET VOLUME 9.4 fl (7.4-10.4); RED BLOOD COUNT 2.84 M/mm3 (4.20-5.60); REDCELL DISTRIBUTION WIDTH-CV 17.1 % (11.5-14.5)
[2021-12-25 09:03] VITALS: BP 160/72; PULSE 77; TEMP 97.9
[2021-12-25 09:39] LABS: BAND 2 % (0-10); METAMYELOCYTE 1 % (0-0); NEUTROPHILS 7 % (42.0-75.2); PLATELET ESTIMATE DECREASED (NORMAL)
[2021-12-25 09:40] LABS: LYMPHOCYTE 8 % (20.0-51.0)
[2021-12-25 09:48] LABS: HEMATOCRIT 24.7 % (42.0-52.0); HEMOGLOBIN 8.2 g/dl (13.5-18.0); MEAN CORPUSCULAR HEMOGLOBIN 29 pg (27-31); PLATELET COUNT 20 K/mm3 (130-400)
[2021-12-27 08:42] VITALS: BP 125/61; PULSE 62; TEMP 98.8
[2021-12-27 09:00] LABS: MEAN CELL VOLUME 88 fl (80.0-100.0); MEAN CORPUSCULAR HGB CONC 32 g/dl (33.0-37.0); MEAN PLATELET VOLUME 11.4 fl (7.4-10.4); RED BLOOD COUNT 2.56 M/mm3 (4.20-5.60); REDCELL DISTRIBUTION WIDTH-CV 16.7 % (11.5-14.5)
[2021-12-27 09:09] LABS: HEMATOCRIT 22.5 % (42.0-52.0); HEMOGLOBIN 7.3 g/dl (13.5-18.0); MEAN CORPUSCULAR HEMOGLOBIN 29 pg (27-31)
[2021-12-27 09:11] LABS: PLATELET COUNT 22 K/mm3 (130-400)
[2021-12-27 10:38] LABS: BAND 2 % (0-10); LYMPHOCYTE 6 % (20.0-51.0); NEUTROPHILS 5 % (42.0-75.2); PLATELET ESTIMATE DECREASED (NORMAL)
[2021-12-30 08:47] LABS: MEAN CELL VOLUME 89 fl (80.0-100.0); MEAN CORPUSCULAR HGB CONC 32 g/dl (33.0-37.0); MEAN PLATELET VOLUME 11.9 fl (7.4-10.4); RED BLOOD COUNT 2.43 M/mm3 (4.20-5.60); REDCELL DISTRIBUTION WIDTH-CV 16.6 % (11.5-14.5)
[2021-12-30 08:48] LABS: HEMATOCRIT 21.6 % (42.0-52.0); MEAN CORPUSCULAR HEMOGLOBIN 29 pg (27-31)
[2021-12-30 08:50] LABS: PLATELET COUNT 26 K/mm3 (130-400)
[2021-12-30 08:57] VITALS: BP 136/70; PULSE 69; TEMP 98.5
[2021-12-30 09:06] LABS: ALBUMIN 3.1 gm/dL (3.4-4.8); BILIRUBIN,TOTAL 0.5 mg/dL (0.2-1.2); CALCIUM 9.3 mg/dL (8.4-10.2); CREATININE, serum 0.77 mg/dL (0.72-1.25); MAGNESIUM 1.8 mg/dL (1.6-2.6); POTASSIUM 4.2 mmol/L (3.5-4.5); TOTAL PROTEIN 5.6 gm/dL (6.2-8.1)
[2021-12-30 09:55] LABS: ANISOCYTOSIS 1+; BAND 2 % (0-10); LYMPHOCYTE 3 % (20.0-51.0); METAMYELOCYTE 1 % (0-0); MYELOCYTE 1 % (0-0); NEUTROPHILS 7 % (42.0-75.2); PLATELET ESTIMATE DECREASED (NORMAL)
[2022-01-02] VITALS (7 sets, daily range): BP systolic 121–156; BP diastolic 67–77; PULSE 66–81; TEMP 98.1–98.4
[2022-01-02 08:53] LABS: MEAN CELL VOLUME 89 fl (80.0-100.0); MEAN CORPUSCULAR HEMOGLOBIN 28 pg (27-31); MEAN CORPUSCULAR HGB CONC 32 g/dl (33.0-37.0); MEAN PLATELET VOLUME 11.6 fl (7.4-10.4); RED BLOOD COUNT 2.37 M/mm3 (4.20-5.60); REDCELL DISTRIBUTION WIDTH-CV 16.6 % (11.5-14.5)
[2022-01-02 08:56] LABS: HEMOGLOBIN 6.7 g/dl (13.5-18.0)
[2022-01-02 08:57] LABS: PLATELET COUNT 26 K/mm3 (130-400)
[2022-01-02 10:38] LABS: BAND 1 % (0-10); NEUTROPHILS 5 % (42.0-75.2)
[2022-01-02 10:39] LABS: LYMPHOCYTE 12 % (20.0-51.0)
[2022-01-02 10:40] LABS: PLATELET ESTIMATE DECREASED (NORMAL)
[2022-01-06 08:33] LABS: MEAN CELL VOLUME 88 fl (80.0-100.0); MEAN CORPUSCULAR HGB CONC 32 g/dl (33.0-37.0); MEAN PLATELET VOLUME 10.5 fl (7.4-10.4); RED BLOOD COUNT 2.74 M/mm3 (4.20-5.60); REDCELL DISTRIBUTION WIDTH-CV 16.1 % (11.5-14.5)
[2022-01-06 08:39] LABS: HEMOGLOBIN 7.7 g/dl (13.5-18.0); MEAN CORPUSCULAR HEMOGLOBIN 28 pg (27-31); PLATELET COUNT 26 K/mm3 (130-400)
[2022-01-06 08:48] LABS: ALBUMIN 3.2 gm/dL (3.4-4.8); BILIRUBIN,TOTAL 0.4 mg/dL (0.2-1.2); CALCIUM 9.2 mg/dL (8.4-10.2); CREATININE, serum 0.74 mg/dL (0.72-1.25); MAGNESIUM 1.6 mg/dL (1.6-2.6); TOTAL PROTEIN 5.6 gm/dL (6.2-8.1)
[2022-01-06 09:35] VITALS: BP 129/68; PULSE 77; TEMP 97.8
[2022-01-06 09:49] LABS: ANISOCYTOSIS 1+; HYPOCHROMIA 1+; LYMPHOCYTE 17 % (20.0-51.0); NEUTROPHILS 4 % (42.0-75.2); PLATELET ESTIMATE DECREASED (NORMAL)
[2022-01-06 10:35] VITALS: BP 134/70; PULSE 72; TEMP 97.3
[2022-01-06 10:50] VITALS: BP 134/72; PULSE 74; TEMP 97.2
[2022-01-06 11:20] VITALS: BP 124/71; PULSE 66; TEMP 97.2
[2022-01-06 12:18] VITALS: BP 136/67; PULSE 70; TEMP 97.2
[2022-01-09 08:55] VITALS: BP 130/63; PULSE 78; TEMP 98.9
[2022-01-09 09:01] LABS: MEAN CELL VOLUME 89 fl (80.0-100.0); MEAN CORPUSCULAR HGB CONC 32 g/dl (33.0-37.0); MEAN PLATELET VOLUME 12.1 fl (7.4-10.4); RED BLOOD COUNT 2.87 M/mm3 (4.20-5.60); REDCELL DISTRIBUTION WIDTH-CV 16.1 % (11.5-14.5)
[2022-01-09 09:03] LABS: HEMATOCRIT 25.4 % (42.0-52.0); HEMOGLOBIN 8.1 g/dl (13.5-18.0); MEAN CORPUSCULAR HEMOGLOBIN 28 pg (27-31); PLATELET COUNT 30 K/mm3 (130-400)
[2022-01-09 09:49] LABS: BAND 1 % (0-10); BASOPHIL 1 % (0-2); METAMYELOCYTE 1 % (0-0); MYELOCYTE 1 % (0-0); NEUTROPHILS 2 % (42.0-75.2); PLATELET ESTIMATE DECREASED (NORMAL)
[2022-01-09 09:50] LABS: LYMPHOCYTE 1 % (20.0-51.0)
[2022-01-13] VITALS (11 sets, daily range): BP systolic 116–141; BP diastolic 66–78; PULSE 68–80; TEMP 97.5–9737
[~2022-01-13] VITALS: Ht 172.7 cm; Wt 82.2 kg
[2022-01-13 09:05] LABS: ALBUMIN 3.2 gm/dL (3.4-4.8); BILIRUBIN,TOTAL 0.3 mg/dL (0.2-1.2); CALCIUM 9.1 mg/dL (8.4-10.2); CREATININE, serum 0.77 mg/dL (0.72-1.25); TOTAL PROTEIN 5.6 gm/dL (6.2-8.1)
[2022-01-13 12:06] LABS: MEAN CELL VOLUME 86 fl (80.0-100.0); MEAN CORPUSCULAR HGB CONC 32 g/dl (33.0-37.0); RED BLOOD COUNT 2.37 M/mm3 (4.20-5.60); REDCELL DISTRIBUTION WIDTH-CV 16.1 % (11.5-14.5)
[2022-01-13 12:07] LABS: BAND 1 % (0-10); HEMATOCRIT 20.4 % (42.0-52.0); HEMOGLOBIN 6.6 g/dl (13.5-18.0); MEAN CORPUSCULAR HEMOGLOBIN 28 pg (27-31); PLATELET COUNT 26 K/mm3 (130-400)
[2022-01-13 12:12] LABS: BASOPHIL 1 % (0-2); EOSINOPHIL 0 % (0-4); LYMPHOCYTE 3 % (20.0-51.0); NEUTROPHILS 3 % (42.0-75.2)
[2022-01-13 12:13] LABS: PLATELET ESTIMATE DECREASED (NORMAL); POLYCHROMASIA 1+
--- NOTE | 2022-01-13 16:40 | NUR ---
Port flushed following transfusion. It will remain accessed for pt's return for labs on . Dressing is intact. Pt assisted out by wheelchair to daughter's car.
== END | disposition home or self-care (01) ==
LOC: EUO
PROVIDERS: Internal Medicine
DX: D46.22 Refractory anemia with excess of blasts 2 (principal); D46.Z Other myelodysplastic syndromes; D69.6 Thrombocytopenia, unspecified; Z95.9 Presence of cardiac and vascular implant and graft, unspecified
CPT/HCPCS: J1644; J7050; P9016; P9035

== ENCOUNTER 2022-01-16 08:25 | Outpatient (RCR) | payer MEDICARE, BC ==
[~2022-01-16] VITALS: Ht 172.7 cm; Wt 82.2 kg
[2022-01-16 08:45] VITALS: BP 117/62; PULSE 78; TEMP 99.2
[2022-01-16 08:50] LABS: MEAN CELL VOLUME 85 fl (80.0-100.0); MEAN CORPUSCULAR HGB CONC 33 g/dl (33.0-37.0); MEAN PLATELET VOLUME 9.6 fl (7.4-10.4); REDCELL DISTRIBUTION WIDTH-CV 15.9 % (11.5-14.5)
[2022-01-16 08:55] LABS: HEMATOCRIT 21.2 % (42.0-52.0); MEAN CORPUSCULAR HEMOGLOBIN 28 pg (27-31); PLATELET COUNT 20 K/mm3 (130-400)
[2022-01-16 09:16] LABS: LYMPHOCYTE 4 % (20.0-51.0); NEUTROPHILS 4 % (42.0-75.2); PLATELET ESTIMATE DECREASED (NORMAL)
[2022-01-16 09:17] LABS: ANISOCYTOSIS 1+; HYPOCHROMIA 1+
[2022-01-16 11:18] VITALS: BP 130/71; PULSE 79; TEMP 98
[2022-01-16 11:34] VITALS: BP 129/69; PULSE 78; TEMP 98.9
[2022-01-16 11:49] VITALS: BP 128/73; PULSE 78; TEMP 98.7
[2022-01-16 12:19] VITALS: BP 127/65; PULSE 73; TEMP 98.3
[2022-01-16 13:07] VITALS: BP 125/71; PULSE 76; TEMP 98.5
--- NOTE | 2022-01-21 16:21 | NUR ---
report received pt .
== END 2022-01-21 16:21 | disposition still patient (30) ==
LOC: EUO 08:25
PROVIDERS: Internal Medicine
DX: D46.9 Myelodysplastic syndrome, unspecified (principal)
CPT/HCPCS: J1644; J7050; P9016

== ENCOUNTER 2022-01-17 00:40 | Emergency (ER) | payer MEDICARE, BC ==
[~2022-01-17] VITALS: Ht 172.7 cm; Wt 79.1 kg
[2022-01-17 00:45] VITALS: TEMP 98.2
[2022-01-17 01:49] LABS: MEAN CELL VOLUME 85 fl (80.0-100.0); MEAN CORPUSCULAR HGB CONC 33 g/dl (33.0-37.0); MEAN PLATELET VOLUME 10.8 fl (7.4-10.4); RED BLOOD COUNT 2.56 M/mm3 (4.20-5.60); REDCELL DISTRIBUTION WIDTH-CV 15.8 % (11.5-14.5)
[2022-01-17 01:53] LABS: HEMATOCRIT 21.8 % (42.0-52.0); HEMOGLOBIN 7.2 g/dl (13.5-18.0); MEAN CORPUSCULAR HEMOGLOBIN 28 pg (27-31)
[2022-01-17 01:54] LABS: PLATELET COUNT 24 K/mm3 (130-400)
[2022-01-17 02:38] LABS: NEUTROPHILS 2 % (42.0-75.2)
[2022-01-17 02:39] LABS: LYMPHOCYTE 3 % (20.0-51.0)
[2022-01-17 02:40] LABS: ANISOCYTOSIS 1+; HYPOCHROMIA 1+; PLATELET ESTIMATE DECREASED (NORMAL)
[2022-01-17 03:20] VITALS: BP 125/71; PULSE 85
== END 2022-01-17 03:00 | disposition short-term general hospital (02) ==
LOC: COL.ER 00:40
PROVIDERS: Nurse Practitioner
DX: S01.01XA Laceration without foreign body of scalp, initial encounter (principal); S06.5X9A Traumatic subdural hemorrhage with loss of consciousness of unspecified duration, initial encounter; D69.6 Thrombocytopenia, unspecified; W01.198A Fall on same level from slipping, tripping and stumbling with subsequent striking against other object, initial encounter
CPT/HCPCS: J1953